=== PATIENT | female | born 1940 | race Caucasian/White ===

== ENCOUNTER 2024-06-20 10:17 | Inpatient (IN) | payer MEDICARE ==
--- NOTE | 2024-06-20 10:44 | ED ---
General Adult HPI - General Chief complaint: Chest Pain Stated complaint: chest pain Time Seen by Provider: 06/20/24 10:21 Source: patient, RN notes reviewed, old records reviewed Mode of arrival: EMS Limitations: no limitations - History of Present Illness Initial comments: 84-year-old female with palpitations, racing heart sensation. Symptoms began t his morning. Patient states she has a remote history of atrial fibrillation which was after bariatric surgery many years ago. She states that this was episodic and she has not required further treatment. She reports associated chest discomfort. No central chest pain. Patient was given aspirin and nitroglycerin by paramedics. No dyspnea. She reports a chronic cough. No vomiting. - Related Data Home Medications Medication Instructions Recorded Confirmed Levothyroxine Sodium 175 mcg PO DAILY 01/23/15 06/20/24 amLODIPine [Norvasc] 2.5 mg PO BID@0800,1200 06/20/24 06/20/24 lisinopriL [Lisinopril] 40 mg PO DAILY@1800 06/20/24 06/20/24 Allergies Allergy/AdvReac Type Severity Reaction Status Date / Time cortisone Allergy Unknown Verified 06/20/24 12:05 losartan potassium Allergy Rash/Hives Verified 06/20/24 12:05 [From Cozaar] Penicillins Allergy Rash/Hives Verified 06/20/24 12:05 - cillins Review of Systems ROS Statement: Those systems with pertinent positive or pertinent negative responses have been documented in the HPI. ROS Other: All systems not noted in ROS Statement are negative. Past Medical History Past Medical History: Atrial Fibrillation, Hypertension, Osteoarthritis (OA), Thyroid Disorder History of Any Multi-Drug Resistant Organisms: None Reported Additional Past Surgical History / Comment(s): RYGB 08/2012. gastric bypass Past Anesthesia/Blood Transfusion Reactions: No Reported Reaction Past Psychological History: No Psychological Hx Reported Smoking Status: Never smoker Past Alcohol Use History: None Reported Past Drug Use History: None Reported General Exam Limitations: no limitations General appearance: alert, in no apparent distress Head exam: Present: atraumatic, normocephalic Eye exam: Present: normal appearance, PERRL ENT exam: Present: normal exam Neck exam: Present: normal inspection. Absent: tenderness, meningismus Respiratory exam: Present: normal lung sounds bilaterally. Absent: respiratory distress, wheezes Cardiovascular Exam: Present: tachycardia, irregular rhythm GI/Abdominal exam: Present: soft. Absent: distended, tenderness, guarding Extremities exam: Present: normal inspection, normal capillary refill. Absent: pedal edema, calf tenderness Neurological exam: Present: alert, oriented X3, CN II-XII intact. Absent: motor sensory deficit Psychiatric exam: Present: normal affect, normal mood Skin exam: Present: warm, dry, intact Course Vital Signs 06/20/24 06/20/24 06/20/24 10:26 10:32 11:13 Temperature 98.4 F Pulse Rate 142 H 70 Pulse Rate [ 170 H [employer] ] Respiratory 14 14 Rate Blood Pressure 130/108 143/90 O2 Sat by Pulse 100 98 Oximetry Medical Decision Making - Medical Decision Making Was pt. sent in by a medical professional or institution (JESSICA Valadez, [employer] MANAGER, urgent care, hospital, or residential...) When possible be specific @ -No Did you speak to anyone other than the patient for history (EMS, parent, family, police, friend...)? What history was obtained from this source @ -No Did you review nursing and triage notes (agree or disagree)? Why? @ -I reviewed and agree with nursing and triage notes Were old charts reviewed (outside hosp., previous admission, EMS record, old EKG, old radiological studies, urgent care reports/EKG's, residential records)? Report findings @ -No old charts were reviewed Differential Palpitations Ventricular arrhythmias, atrial arrhythmias, myocardial infarction, anemia, thyrotoxicosis, electrolyte imbalance, hypokalemia, pulmonary embolism, pulmonary disease, drugs, alcohol, anxiety, stress.... This is not meant to be an all-inclusive list. EKG interpreted by me (3pts min.). @ -Atrial fibrillation with RVR rate of 154 QRS duration 99, QTc [address] segment elevation. Repeat EKG at 1119 sinus tachycardia, left axis, rate of 105, CT interval 210, QRS duration 111, QTc [address] segment elevation. X-rays interpreted by me (1pt min.). @Chest x-ray negative for acute cardiopulmonary disease CT interpreted by me (1pt min.). @ -None done U/S interpreted by me (1pt. min.). @ -None done What testing was considered but not performed or refused? (CT, X-rays, U/S, labs)? Why? @ -None What meds were considered but not given or refused? Why? @ -None Did you discuss the management of the patient with other professionals (professionals i.e. , PA, [employer]INO CAGE MANAGER, lab, RT, psych nurse, social human services assistants, legal technician, teacher, records officer, behavioral health case manager)? Give summary @[employer] physician group Was smoking cessation discussed for >3mins.? @ -No Was critical care preformed (if so, how long)? @ -Yes, 35 minutes Were there social determinants of health that impacted care today? How? (Homelessness, low income, unemployed, alcoholism, drug addiction, transportation, low edu. Level, literacy, decrease access to med. care, shelter, rehab)? @ -No Was there de-escalation of care discussed even if they declined (Discuss DNR or withdrawal of care, Hospice)? DNR status @ -No What co-morbidities impacted this encounter? (DM, HTN, Smoking, COPD, CAD, Cancer, CVA, ARF, Chemo, Hep., AIDS, mental health diagnosis, sleep apnea, morbid obesity)? @ -None Was patient admitted / discharged? Hospital course, mention meds given and route, prescriptions, significant lab abnormalities, going to OR and other pertinent info. @ -[84-year-old female presenting with rapid A-fib and chest discomfort. Initial EKG is atrial fibrillation with a rate of 150. Patient does spontaneously convert into sinus rhythm. She will be placed in observation for telemetry, serial cardiac enzymes, cardiology consultation. Undiagnosed new problem with uncertain prognosis? @ -No Drug Therapy requiring intensive monitoring for toxicity (Heparin, Nitro, Insulin, Cardizem)? @ -No Were any procedures done? @ -No Diagnosis/symptom? @ -[Atrial fibrillation with RVR, chest discomfort Acute, or Chronic, or Acute on Chronic? @ -Acute Uncomplicated (without systemic symptoms) or Complicated (systemic symptoms)? @ -Default Side effects of treatment? @ -No Exacerbation, Progression, or Severe Exacerbation? @ -No Poses a threat to life or bodily function? How? (Chest pain, USA, IA, pneumonia, PE, COPD, DKA, ARF, appy, cholecystitis, CVA, Diverticulitis, Homicidal, Suicidal, threat to staff... and all critical care pts) @ -Yes, arrhythmia, ACS - Lab Data Result diagrams: 06/20/24 10:39 06/20/24 11:17 Lab Results 06/20/24 06/20/24 06/20/24 Range/Units 10:39 10:39 11:17 WBC 5.8 (3.8-10.6) k/uL RBC 4.84 (3.80-5.40) m/uL Hgb 13.8 (11.4-16.0) gm/dL Hct 43.3 (34.0-46.0) % MCV 89.4 (80.0-100.0) fL MCH 28.6 (25.0-35.0) pg MCHC 32.0 (31.0-37.0) g/dL RDW 13.8 (11.5-15.5) % Plt Count 151 (150-450) k/uL MPV 11.4 Neutrophils % 58 % Lymphocytes % 27 % Monocytes % 7 % Eosinophils % 7 % Basophils % 0 % Neutrophils # 3.4 (1.3-7.7) k/uL Lymphocytes # 1.6 (1.0-4.8) k/uL Monocytes # 0.4 (0-1.0) k/uL Eosinophils # 0.4 (0-0.7) k/uL Basophils # 0.0 (0-0.2) k/uL Manual Slide Review Performed Large Platelets Present PT 10.9 (10.0-12.5) sec INR 1.0 (<1.2) APTT 24.0 (22.0-30.0) sec Sodium (137-145) mmol/L Potassium (3.5-5.1) mmol/L Chloride (98-107) mmol/L Carbon Dioxide (22-30) mmol/L Anion Gap mmol/L BUN (7-17) mg/dL Creatinine (0.52-1.04) mg/dL Est GFR (CKD-EPI)AfAm (>60 ml/min/1.73 sqM) Est GFR (CKD-EPI)NonAf (>60 ml/min/1.73 sqM) Glucose (74-99) mg/dL Calcium (8.4-10.2) mg/dL Magnesium (1.6-2.3) mg/dL Total Bilirubin (0.2-1.3) mg/dL AST (14-36) U/L ALT (4-34) U/L Alkaline Phosphatase (38-126) U/L Troponin I 0.012 (0.000-0.034) ng/mL Total Protein (6.3-8.2) g/dL Albumin (3.5-5.0) g/dL TSH (0.465-4.680) mIU/L 06/20/24 Range/Units 11:17 WBC (3.8-10.6) k/uL RBC (3.80-5.40) m/uL Hgb (11.4-16.0) gm/dL Hct (34.0-46.0) % MCV (80.0-100.0) fL MCH (25.0-35.0) pg MCHC (31.0-37.0) g/dL RDW (11.5-15.5) % Plt Count (150-450) k/uL MPV Neutrophils % % Lymphocytes % % Monocytes % % Eosinophils % % Basophils % % Neutrophils # (1.3-7.7) k/uL Lymphocytes # (1.0-4.8) k/uL Monocytes # (0-1.0) k/uL Eosinophils # (0-0.7) k/uL Basophils # (0-0.2) k/uL Manual Slide Review Large Platelets PT (10.0-12.5) sec INR (<1.2) APTT (22.0-30.0) sec Sodium 141 (137-145) mmol/L Potassium 4.2 (3.5-5.1) mmol/L Chloride 110 H (98-107) mmol/L Carbon Dioxide 23 (22-30) mmol/L Anion Gap 8 mmol/L BUN 18 H (7-17) mg/dL Creatinine 0.90 (0.52-1.04) mg/dL Est GFR (CKD-EPI)AfAm 69 (>60 ml/min/1.73 sqM) Est GFR (CKD-EPI)NonAf 60 (>60 ml/min/1.73 sqM) Glucose 101 H (74-99) mg/dL Calcium 9.2 (8.4-10.2) mg/dL Magnesium 1.9 (1.6-2.3) mg/dL Total Bilirubin 2.5 H (0.2-1.3) mg/dL AST 25 (14-36) U/L ALT 16 (4-34) U/L Alkaline Phosphatase 74 (38-126) U/L Troponin I (0.000-0.034) ng/mL Total Protein 6.0 L (6.3-8.2) g/dL Albumin 4.0 (3.5-5.0) g/dL TSH 0.046 L (0.465-4.680) mIU/L Critical Care Time Critical Care Time: Yes Total Critical Care Time: 35 Disposition Clinical Impression: Chest pain, Atrial fibrillation with RVR Disposition: ADMITTED IP TO THIS HOSP Condition: Stable Is patient prescribed a controlled substance at d/c from ED?: No Referrals: Jose Laura DO [Primary Care Provider] - 1-2 days Time of Disposition: 12:54
[2024-06-20 11:05] LABS: Prothrombin Time 10.9 sec (10.0-12.5)
[2024-06-20 11:07] LABS: Basophils % (A) 0 %; Eosinophils # (A) 0.4 k/uL (0-0.7); Eosinophils % (A) 7 %; HCT 43.3 % (34.0-46.0); HGB 13.8 gm/dL (11.4-16.0); Lymphocytes # (A) 1.6 k/uL (1.0-4.8); Lymphocytes % (A) 27 %; MCH 28.6 pg (25.0-35.0); MCV 89.4 fL (80.0-100.0); Mean Platelet Volume 11.4; Monocytes # (A) 0.4 k/uL (0-1.0); Monocytes % (A) 7 %; Neutrophils # (A) 3.4 k/uL (1.3-7.7); Neutrophils % (A) 58 %; Platelet Count 151 k/uL (150-450); RBC 4.84 m/uL (3.80-5.40); RDW 13.8 % (11.5-15.5); WBC 5.8 k/uL (3.8-10.6)
--- NOTE | 2024-06-20 11:15 | XR ---
EXAMINATION TYPE: XR chest 2V DATE OF EXAM: 06/20/2024 11:04 AM COMPARISON: None CLINICAL INDICATION: Female, 84 years old with history of Chest Pain, , TECHNIQUE: AP and lateral views FINDINGS: Heart is borderline enlarged. Hazy lung densities relating to patient body habitus and AP technique. Surgical clips projecting at the left lower hemithorax probably related to prior lumpectomy. No conso lidation or pleural effusion. IMPRESSION: Borderline heart size. Otherwise, no acute process seen. [facility], , 06/20/2024 11:13 AM
[2024-06-20] MEDS: SODIUM CHLORIDE 0.9% 500 ML 500 ML IV ONE (11:17)
[2024-06-20] MEDS ORDERED: HEPARIN SODIUM 1,000 UN/ML (10ML VL) IV PRN (11:26)
[2024-06-20 11:32] LABS: Large Platelets Present
[2024-06-20 11:46] LABS: ALT 16 U/L (4-34); AST 25 U/L (14-36); African American GFR (CKD) 69 (>60 ml/min/1.73 sqM); Alkaline Phosphatase 74 U/L (38-126); Anion Gap 8 mmol/L; Blood Urea Nitrogen 18 mg/dL (7-17); Calcium 9.2 mg/dL (8.4-10.2); Carbon Dioxide 23 mmol/L (22-30); Chloride 110 mmol/L (98-107); Glucose 101 mg/dL (74-99); Magnesium 1.9 mg/dL (1.6-2.3); Non-African American GFR(CKD) 60 (>60 ml/min/1.73 sqM); Potassium 4.2 mmol/L (3.5-5.1); Sodium 141 mmol/L (137-145); Total Bilirubin 2.5 mg/dL (0.2-1.3)
[2024-06-20] MEDS: HEPARIN SODIUM 1,000 UN/ML (10ML VL) IV ONE (11:48)
[2024-06-20] MEDS: HEPARIN SOD,PORK IN 0.45% NACL 25,000 UNIT in 0.45% NACL 1 250ML.BAG IV SCH (11:48)
[2024-06-20] MEDS ORDERED: NALOXONE 0.4 MG/ML 1 ML VIAL IV PRN (12:51)
[2024-06-20] MEDS: DILTIAZEM DRIP BOLUS FROM BAG 1 MG SOLN IV ONE (12:58)
[2024-06-20] MEDS: DILTIAZEM 125 MG in SODIUM CHLORIDE 0.9% 100 ML IV SCH (12:59)
--- NOTE | 2024-06-20 14:07 | P.HPIM ---
History of Present Illness H&P Date: 06/20/24 Patient is an 84-year-old female with past medical history of bariatric surgery, remote history of A-fib that started after she lost 160 pounds, required cardioversion was on Eliquis for some time, hypertension, hypothyroidism, left breast cancer status post lumpectomy no chemo or radiation needed, PAD bilateral carotid endarterectomy, presented with palpitation with associated chest dis comfort, brain fog. EMS called, patient was given aspirin, nitroglycerin. Has been having symptoms for the past couple months with on and off palpitations, she believes it was stress-induced as she recently moved, her had open heart surgery, she denies LOS, shortness of breath, admits having chronic nonproductive cough, no fevers, chills, bowel habit changes, dysuria. On admission she was afebrile, with heart rate going up to 170s, stable BP in the 130s over 100s, satting well on room air. Pertinent positives and negatives as discussed in HPI, a complete review of systems was performed and all other systems are negative. EKG showed no P waves, heart rate 150s, QTc 370. without intervention, converted to sinus with no intervention, repeat EKG showed sinus tachycardia with heart ra te in 100s and QTc of 418, no ST elevation noted. Patient is being admitted for management of A-fib, cardiology consult, TTE Lab work was significant for unremarkable WBC, normal sodium and potassium, normal creatinine, TSH was low 0.0 46, T4 requested, troponin negative. Patient was continued on levothyroxine, might need dosage management pending T4 levels, continued on lisinopril, started on Lopressor 25 twice daily, holding amlodipine to monitor for blood pressure changes while on beta-blockers TSH low, T4 pending, will hold levothyroxine Patient seen and examined at bedside. Vital signs reviewed General: nontoxic, no distress, appears at stated age Derm: warm, dry Head: atraumatic, normocephalic, symmetric Eyes: EOMI, no lid lag, anicteric sclera, pupils equal round reactive to light ENT: Nose and ears atraumatic Neck: No thyromegaly, supple Mouth: no lip lesion, mucus membranes moist Cardiovascular: S1S2 reg, no murmur, no edema Lungs: clear to auscultation bilateral, no rhonchi, no rales, no wheeze, no accessory muscle use Abdominal: soft, nontender to palpation, no guarding, no appreciable organomegaly Ext: no gross muscle atrophy, muscle strength muscle strength 5 out of 5 in all 4 extremities, no contractures Neuro: CN II-XII grossly intact Psych: Alert, oriented, appropriate affect Assessment/Plan: Paroxysmal A-fib with RVR, converted to sinus Remote history of A-fib Hypertension Possible iatrogenic hyperthyroidism -Telemetry -TTE -Cardiology consulted, appreciate recommendations -Continue heparin drip, likely transition on eliquis -Continue lisinopril, start Lopressor 25 twice daily, monitor for hypotension -T4 pending, hold home levothyroxine 176 mcg daily, will readjust the dose depending on T4 levels PAD status post bilateral carotid enterectomy: Patient is not on antiplatelets or statins History of left breast surgery status postlumpectomy The patient is admitted with an anticipated [greater] than 2 midnight stay as [inpatient/observation] status for evaluation of chest pain, A-fib with RVR. CODE STATUS: DNR/DNI DVT prophylaxis: Heparin drip Anticipated discharge date: 06/[address]: Home A total of 40 minutes was spent on the care of this complex patient more than 50% of the time was spent in counseling and care coordination. Past Medical History Past Medical History: Atrial Fibrillation, Hypertension, Osteoarthritis (OA), Thyroid Disorder History of Any Multi-Drug Resistant Organisms: None Reported Additional Past Surgical History / Comment(s): RYGB 08/2012. gastric bypass Past Anesthesia/Blood Transfusion Reactions: No Reported Reaction Past Psychological History: No Psychological Hx Reported Smoking Status: Never smoker Past Alcohol Use History: None Reported Past Drug Use History: None Reported Medications and Allergies Home Medications Medication Instructions Recorded Confirmed Type Levothyroxine Sodium 175 mcg PO DAILY 01/23/15 06/20/24 History amLODIPine [Norvasc] 2.5 mg PO BID@0800,1200 06/20/24 06/20/24 History lisinopriL [Lisinopril] 40 mg PO DAILY@1800 06/20/24 06/20/24 History Allergies Allergy/AdvReac Type Severity Reaction Status Date / Time cortisone Allergy Unknown Verified 06/20/24 12:05 losartan potassium Allergy Rash/Hives Verified 06/20/24 12:05 [From Cozaar] Penicillins Allergy Rash/Hives Verified 06/20/24 12:05 - cillins Physical Exam Vitals: Vital Signs Temp Pulse Pulse Resp BP Pulse Ox 06/20/24 11:13 70 14 143/90 98 06/20/24 10:32 170 H 06/20/24 10:26 98.4 F 142 H 14 130/108 100 Intake and Output 06/19/24 06/20/24 06/20/24 22:59 06:59 14:59 Other: Weight 85.275 kg Results CBC & Chem 7: 06/20/24 10:39 06/20/24 11:17 Labs: Abnormal Lab Results - Last 24 Hours (Table) 06/20/24 Range/Units 11:17 Chloride 110 H (98-107) mmol/L BUN 18 H (7-17) mg/dL Glucose 101 H (74-99) mg/dL Total Bilirubin 2.5 H (0.2-1.3) mg/dL Total Protein 6.0 L (6.3-8.2) g/dL TSH 0.046 L (0.465-4.680) mIU/L
--- NOTE | 2024-06-20 14:39 | P.CRDCN ---
History of Present Illness History of present illness: HISTORY OF PRESENT ILLNESS: This is a 84-year-old female with a past medical history significant for obesity status post bariatric surgery, thyroid disorder, hypertension, and paroxysmal atrial fibrillation. Patient used to follow with a diesel instructor in [place], Dr. Soriano. However she states that she has moved to this area recently and has not established with a diesel instructor. We have been asked to see the patient in consultation for A-fib with RVR. Patient examined at the bedside in the emergency room. Patient states that she had bariatric surgery in 2012 (?). She states after her surgery she has had intermittent issues with atrial fibrillation. She denies ever needing a cardioversion or ablation. She states that she was previously on metoprolol but was taken off of this secondary to bradycardia. She also states that she was previously anticoagulated with Eliqui s but saw one of Dr. Soriano's partners and was taken off of this as he told her it was no longer needed. Patient states on 's [place]asc[place] she was placed on amlodipine by her PCP as her blood pressures were running on the higher side. She states over the past month she has been having symptoms about twice a week of palpitations, mild chest pressure, her head feels foggy and she feels like she is going to pass out. She denies having any shortness of breath. Patient was found to be in A-fib with RVR when she came to the emergency room. Patient was started on IV heparin and IV Cardizem. She subsequently converted to sinus mechanism. Patient does report having a previous stress test but is unsure of when or how long ago this was. She denies ever having a cardiac catheterization. She denies any known history of CAD, cardiomyopathy, or CHF. DIAGNOSTICS: - EKG reveals atrial fibrillation with RVR. Repeat EKG reveals sinus mechanism. - Chest xray borderline heart size. Otherwise no acute process seen. - Laboratory data: WBC 5.8. Hemoglobin 13.8. Platelet count 151. Sodium 141. Potassium 4.2. BUN 18. Creatinine 0.90. Troponin negative x 1. TSH 0.046. Free T42.78. - Current home cardiac medications include lisinopril 40 mg daily and amlodipine 2.5 mg twice a day REVIEW OF SYSTEMS: At the time of my exam: CONSTITUTIONAL: Denies fever or chills. HEENT: Denies blurred vision, vision changes, or eye pain. Denies hemoptysis CARDIOVASCULAR: Denies chest pain. Denies orthopnea. Denies PND. Denies palpitations RESPIRATORY: Denies shortness of breath. GASTROINTESTINAL: Denies abdominal pain. Denies nausea or vomiting. HEMATOLOGIC: Denies bleeding disorders. GENITOURINARY: Denies any blood in urine. SKIN: Denies pruitis. Denies rash. PHYSICAL EXAM: VITAL SIGNS: Reviewed. GENERAL: Well-developed in no acute distress. HEENT: Head is normocephalic. Pupils are equal, round. Sclerae anicteric. Mucous membranes of the mouth are moist. Neck supple. No JVD or thyromegaly LUNGS: Respirations even and unlabored. Lungs essentially clear to auscultation bilaterally. HEART: Regular rate and rhythm. S1 and S2 heard. ABDOMEN: Soft. Nondistended. Nontender. EXTREMITIES: Normal range of motion. No clubbing or cyanosis. Peripheral pulses intact. No lower extremity edema NEUROLOGIC: Awake and alert. Oriented x 3. ASSESSMENT: Paroxysmal atrial fibrillation with RVR Hypertension History of thyroid disorder with abnormal TSH and free T4 History of left breast cancer with mastectomy History of carotid stenosis with previous bilateral intervention PLAN: Obtain 2D echo to assess cardiac structure and function Discontinue IV Cardizem and IV heparin Discontinue metoprolol Begin Eliquis 5 mg twice a day Begin Cardizem CD 120 mg daily Begin flecainide 50 mg twice a day Obtain orthostatic blood pressures Continue telemetry monitoring Further recommendations pending patient course Nurse practitioner note has been reviewed by physician. Signing provider agrees with the documented findings, assessment, and plan of care documented by HIRE CAR [employer] as a scribe. Past Medical History Past Medical History: Atrial Fibrillation, Hypertension, Osteoarthritis (OA), Thyroid Disorder History of Any Multi-Drug Resistant Organisms: None Reported Additional Past Surgical History / Comment(s): RYGB 08/2012. gastric bypass Past Anesthesia/Blood Transfusion Reactions: No Reported Reaction Past Psychological History: No Psychological Hx Reported Smoking Status: Never smoker Past Alcohol Use History: None Reported Past Drug Use History: None Reported Medications and Allergies Home Medications Medication Instructions Recorded Confirmed Type Levothyroxine Sodium 175 mcg PO DAILY 01/23/15 06/20/24 History amLODIPine [Norvasc] 2.5 mg PO BID@0800,1200 06/20/24 06/20/24 History lisinopriL [Lisinopril] 40 mg PO DAILY@1800 06/20/24 06/20/24 History Allergies Allergy/AdvReac Type Severity Reaction Status Date / Time cortisone Allergy Unknown Verified 06/20/24 12:05 losartan potassium Allergy Rash/Hives Verified 06/20/24 12:05 [From [facility]] Penicillins Allergy Rash/Hives Verified 06/20/24 12:05 - cillins Physical Exam Vitals: Vital Signs Temp Pulse Pulse Resp BP Pulse Ox 06/20/24 11:13 70 14 143/90 98 06/20/24 10:32 170 H 06/20/24 10:26 98.4 F 142 H 14 130/108 100 Intake and Output 06/19/24 06/20/24 06/20/24 22:59 06:59 14:59 Other: Weight 85.275 kg Results 06/20/24 10:39 06/20/24 11:17 Cardiac Enzymes 06/20/24 06/20/24 Range/Units 11:17 11:17 AST 25 (14-36) U/L Troponin I 0.012 (0.000-0.034) ng/mL Coagulation 06/20/24 Range/Units 10:39 PT 10.9 (10.0-12.5) sec APTT 24.0 (22.0-30.0) sec CBC 06/20/24 Range/Units 10:39 WBC 5.8 (3.8-10.6) k/uL RBC 4.84 (3.80-5.40) m/uL Hgb 13.8 (11.4-16.0) gm/dL Hct 43.3 (34.0-46.0) % Plt Count 151 (150-450) k/uL Comprehensive Metabolic Panel 06/20/24 Range/Units 11:17 Sodium 141 (137-145) mmol/L Potassium 4.2 (3.5-5.1) mmol/L Chloride 110 H (98-107) mmol/L Carbon Dioxide 23 (22-30) mmol/L BUN 18 H (7-17) mg/dL Creatinine 0.90 (0.52-1.04) mg/dL Glucose 101 H (74-99) mg/dL Calcium 9.2 (8.4-10.2) mg/dL AST 25 (14-36) U/L ALT 16 (4-34) U/L Alkaline Phosphatase 74 (38-126) U/L Total Protein 6.0 L (6.3-8.2) g/dL Albumin 4.0 (3.5-5.0) g/dL Current Medications Generic Name Dose Route Start Last Admin Trade Name Freq PRN Reason Stop Dose Admin Heparin Sodium (Porcine) 0 unit 06/20/24 11:26 Heparin Sodium 1,000 Un/Ml (10ml Vl) IV PER PROTOCOL PRN Low PTT Protocol Diltiazem HCl 125 mg/ Sodium 125 mls @ 5 mls/hr 06/20/24 10:45 06/20/24 12:59 Chloride IV Not Given .Q24H JANICE 5 MG/HR Heparin Sodium/Sodium Chloride 250 mls @ 10 mls/hr 06/20/24 11:30 06/20/24 11:48 25,000 unit/ Sodium Chloride IV 11.727 units/kg/hr .Q24H JANICE 10 mls/hr Administration Protocol 11.727 UNITS/KG/HR Lisinopril 40 mg 06/20/24 18:00 Lisinopril 20 Mg Tab PO DAILY@1800 JANICE Metoprolol Tartrate 25 mg 06/20/24 21:00 Metoprolol Tartrate 25 Mg Tab PO BID JANICE Naloxone HCl 0.2 mg 06/20/24 12:51 Naloxone 0.4 Mg/Ml 1 Ml Vial IV Q2M PRN Opioid Reversal Intake and Output 06/19/24 06/20/24 06/20/24 22:59 06:59 14:59 Other: Weight 85.275 kg Patient Weight 06/21/24 06:59 Weight 85.275 kg 06/20/24 10:39 06/20/24 11:17
[2024-06-20] MEDS: DILTIAZEM CD 120 MG CAP.ER.24H PO SCH (14:52)
[2024-06-20] MEDS: FLECAINIDE 50 MG TAB PO SCH (14:52)
--- NOTE | 2024-06-20 17:24 | CA ---
Transthoracic Echo Report Name: Miesha Aroar Age: 84 Gender: F : 1940 Exam Date: 06/20/2024 15:31 Exam Location: [place] [facility] Ht (in): 66 Wt (lb): 188 Ordering Physician: Mariza Wolfe MD Attending/Referring Phys: Solar Sales Associate Helen Martinez RDCS Procedure CPT: Indications: afib Cardiac Hx: Technical Quality: Good Contrast 1: Total Dose (mL): Contrast 2: Total Dose (mL): MEASUREMENTS (Male / Female) Normal Values 2D ECHO LV Diastolic Diameter PLAX 4.6 cm 4.2 - 5.9 / 3.9 - 5.3 cm LV Systolic Diameter PLAX 2.9 cm IVS Diastolic Thickness 1.2 cm 0.6 - 1.0 / 0.6 - 0.9 cm LVPW Diastolic Thickness 1.5 cm 0.6 - 1.0 / 0.6 - 0.9 cm LV Relative Wall Thickness 0.6 LVOT Diameter 2.1 cm LV Diastolic Volume MOD BP 86.0 cm??? 67 - 155 / 56 - 104 cm??? LV Systolic Volume MOD BP 29.3 cm??? 22 - 58 / 19 - 49 cm??? LV Ejection Fraction MOD BP 65.9 % >= 55 % LV Cardiac Index MOD BP 1740.0 cm???/min???m??? LV Diastolic Volume MOD 4C 87.4 cm??? LV Systolic Volume MOD 4C 33.3 cm??? LV Ejection Fraction MOD 4C 61.9 % LV Cardiac Index MOD 4C 1660.3 cm???/min???m??? LV Diastolic Length 4C 7.2 cm LV Systolic Length 4C 5.7 cm LV Diastolic Volume MOD 2C 80.9 cm??? LV Systolic Volume MOD 2C 25.7 cm??? LV Ejection Fraction MOD 2C 68.3 % LV Cardiac Index MOD 2C 1696.2 cm???/min???m??? LV Diastolic Length 2C 6.9 cm LV Systolic Length 2C 5.8 cm LA Volume 85.9 cm??? 18 - 58 / 22 - 52 cm??? LA Volume Index 42.6 cm???/m??? 16 - 28 cm???/m??? DOPPLER AV Peak Velocity 156.1 cm/s AV Peak Gradient 9.7 mmHg AV Mean Velocity 104.9 cm/s AV Mean Gradient 4.9 mmHg AV Velocity Time Integral 28.3 cm LVOT Peak Velocity 102.2 cm/s LVOT Peak Gradient 4.2 mmHg LVOT Velocity Time Integral 19.9 cm LVOT Stroke Volume 68.2 cm??? LVOT Stroke Volume Index 35.0 ml/m??? LVOT Cardiac Index 2094.8 cm???/min???m??? AV Area Cont Eq vti 2.4 cm??? AV Area Cont Eq pk 2.2 cm??? MV Area PHT 3.6 cm??? Mitral E Point Velocity 43.6 cm/s Mitral A Point Velocity 82.4 cm/s Mitral E to A Ratio 0.5 MV Deceleration Time 209.7 ms PV Peak Velocity 90.0 cm/s PV Peak Gradient 3.2 mmHg FINDINGS Left Ventricle Left ventricular ejection fraction is estimated at 55-60 %. Mildly increased septal wall thickness. Moderately increased posterior wall thickness. Left ventricular cavity size normal. No obvious regional wall motion abnormalities. Grade 1 diastolic dysfunction. Right Ventricle Normal right ventricular size and function. Unable to estimate the right ventricular systolic pressure. Right Atrium Mild right atrial dilated Left Atrium Moderate LA dilated Mitral Valve Structurally normal mitral valve. No evidence for mitral valve prolapse. No mitral stenosis. Trace mitral regurgitation. Aortic Valve Trileaflet aortic valve. No aortic valve stenosis or regurgitation. Tricuspid Valve Structurally normal tricuspid valve. No tricuspid stenosis. Trace tricuspid regurgitation. Pulmonic Valve Structurally normal pulmonic valve. No pulmonic stenosis. No pulmonic regurgitation. Pericardium No pericardial effusion. Aorta Normal size aortic root and proximal ascending aorta. CONCLUSIONS LVEF 55% No obvious regional wall motion abnormality Mild concentric LVH Moderate left atrial dilatation No significant valvular dysfunction. Previewed by: Dr Gonzales Worthy (Electronically Signed) Final Date: 20 June 2024 17:23
[2024-06-20] MEDS: lisinopriL 20 MG TAB PO SCH (17:40)
[2024-06-20] MEDS: APIXABAN 5 MG TAB PO SCH (20:56)
[2024-06-20] MEDS ORDERED: METOPROLOL TARTRATE 25 MG TAB PO SCH (21:00)
[2024-06-21] MEDS ORDERED: LEVOTHYROXINE 88 MCG TAB PO SCH (06:30)
[2024-06-21 07:30] VITALS: RESP 16
--- NOTE | 2024-06-21 09:54 | P.PN ---
Subjective HISTORY OF PRESENT ILLNESS: This is a 84-year-old female with a past medical history significant for obesity status post bariatric surgery, thyroid disorder, hypertension, and paroxysmal atrial fibrillation. Patient used to follow with a early childhood teacher in [place], Dr. Soriano. However she states that she has moved to this area recently and has not established with a early childhood teacher. We have been asked to see the patient in consultation for A-fib with RVR. Patient examined at the bedside in the emergency room. Patient states that she had bariatric surgery in 2012 (?). She states after her surgery she has had intermittent issues with atrial fibrillation. She denies ever needing a cardioversion or ablation. She states that she was previously on metoprolol but was taken off of this secondary to bradycardia. She also states that she was previously anticoagulated with Eliquis but saw one of Dr. Soriano's partners and was taken off of this as he told her it was no longer needed. Patient states on 's [place] she was placed on amlodipine by her PCP as her blood pressures were running on the higher side. She states over the past month she has been having symptoms about twice a week of palpitations, mild chest pressure, her head feels foggy and she feels like she is going to pass out. She denies having any shortness of breath. Patient was found to be in A-fib with RVR when she came to the emergency room. Patient was started on IV heparin and IV Cardizem. She subsequently converted to sinus mechanism. Patient does report having a previous stress test but is unsure of when or how long ago this was. She denies ever having a cardiac catheterization. She denies any known history of CAD, cardiomyopathy, or CHF. DIAGNOSTICS: - EKG reveals atrial fibrillation with RVR. Repeat EKG reveals sinus mechanism. - Chest xray borderline heart size. Otherwise no acute process seen. - Laboratory data: WBC 5.8. Hemoglobin 13.8. Platelet count 151. Sodium 141. Potassium 4.2. BUN 18. Creatinine 0.90. Troponin negative x 1. TSH 0.046. Free T42.78. - Current home cardiac medications include lisinopril 40 mg daily and amlodipine 2.5 mg twice a day 06/21/2024 Patient examined this morning at the bedside. She remains in emergency room. Patient currently denies chest pain or pressure. She denies shortness of br eath. Telemetry reveals sinus mechanism. Orthostatic blood pressures obtained and were unremarkable. Echocardiogram completed revealing ejection fraction 55 to 60%, no obvious regional wall motion abnormalities, mild concentric LVH, moderate left atrial dilatation, no significant valvular dysfunction. PHYSICAL EXAM: VITAL SIGNS: Reviewed. GENERAL: Well-developed in no acute distress. HEENT: Head is normocephalic. Pupils are equal, round. Sclerae anicteric. Mucous membranes of the mouth are moist. Neck supple. No JVD or thyromegaly LUNGS: Respirations even and unlabored. Lungs essentially clear to auscultation bilaterally. HEART: Regular rate and rhythm. S1 and S2 heard. ABDOMEN: Soft. Nondistended. Nontender. EXTREMITIES: Normal range of motion. No clubbing or cyanosis. Peripheral pulses intact. No lower extremity edema NEUROLOGIC: Awake and alert. Oriented x 3. ASSESSMENT: Paroxysmal atrial fibrillation with RVR Hypertension History of thyroid disorder with abnormal TSH and free T4 History of left breast cancer with mastectomy History of carotid stenosis with previous bilateral intervention PLAN: Continue current cardiac medications Patient is stable for discharge home today from a cardiac standpoint She is to follow-up postdischarge with Dr. Baker Nurse practitioner note has been reviewed by physician. Signing provider agrees with the documented findings, assessment, and plan of care documented by PAPER CUTTER as a scribe. Objective - Vital Signs Vital signs: Vital Signs Temp 98.6 F 06/20/24 14:26 Pulse 59 L 06/21/24 08:27 Resp 16 06/21/24 07:28 BP 137/61 06/21/24 07:28 Pulse Ox 97 06/21/24 07:28 FiO2 Intake & Output 06/20/24 06/21/24 06/21/24 18:59 06:59 18:59 Weight 85.275 kg - Labs CBC & Chem 7: 06/20/24 10:39 06/20/24 11:17 Labs: Abnormal Lab Results - Last 24 Hours (Table) 06/20/24 06/20/24 Range/Units 11:17 11:17 Chloride 110 H (98-107) mmol/L BUN 18 H (7-17) mg/dL Glucose 101 H (74-99) mg/dL Total Bilirubin 2.5 H (0.2-1.3) mg/dL Total Protein 6.0 L (6.3-8.2) g/dL TSH 0.046 L (0.465-4.680) mIU/L Free T4 2.78 H (0.78-2.19) ng/dL
--- NOTE | 2024-06-21 13:39 | P.DS ---
Providers Date of admission: 06/20/24 15:35 Attending physician: Tushar Cobb Consults: 06/20/24 12:51 Consult Physician Routine Consulting Provider: Leora Lam Consult Reason/Comments: A-fib RVR Do you want consulting provider notified?: Yes Primary care physician: Jose Laura Assessment: Discharge Diagnosis: Paroxysmal A-fib with RVR Grade 1 diastolic dysfunction HTN Iatrogenic hyperthyroidism History of hypothyroidism History of left breast cancer status post mastectomy History of bilateral carotid stenosis with bilateral intervention Hospital Course: Patient is an 84-year-old female with past medical history of bariatric surgery, remote history of A-fib that started after she lost 160 pounds, required cardioversion was on Eliquis for some time, hypertension, hypothyroidism, left breast cancer status post lumpectomy no chemo or radiation needed, PAD bilateral carotid endarterectomy, presented with palpitation with associated chest discomfort, brain fog. EMS called, patient was given aspirin, nitroglycerin. Has been having symptoms for the past couple months with on and off palpitations, she believes it was stress-induced as she recently moved, her had open heart surgery, she denies LOS, shortness of breath, admits having chronic nonproductive cough, no fevers, chills, bowel habit changes, dysuria. On admission she was afebrile, with heart rate going up to 170s, stable BP in the 130s over 100s, satting well on room air. Pertinent positives and negatives as discussed in HPI, a complete review of systems was performed and all other systems are negative. EKG showed no P waves, heart rate 150s, QTc 370. without intervention, converted to sinus with no intervention, repeat EKG showed sinus tachycardia with heart rate in 100s and QTc of 418, no ST elevation noted. Patient is being admitted for management of A-fib, cardiology consult, TTE Lab work was significant for unremarkable WBC, normal sodium and potassium, normal creatinine, TSH was low 0.0 46, T4 elevated 2.78, troponin negative. Levothyroxine dose decreased from 175 to 150 mcg/day patient needs to recheck thyroid levels in 4 to 6 weeks. Patient was seen by cardiology, started on Eliquis 5 mg twice daily, Cardizem CD1 20 mg daily, flecainide 50 mg twice daily. TTE showed EF of 55 to 60%, mildly increased septal thickening and posterior wall thickening, no obvious regional wall motion abnormalities, grade 1 diastolic dysfunction. Patient has been discharged home in stable condition with controlled heart rate, will continue Cardizem, flecainide, Eliquis, follow-up with cardiology on discharge. Cleared by cardiology. Patient seen and examined at bedside, she feels back to baseline, no active complaints. Vital signs reviewed and stable. General: [nontoxic], [no distress], [appears at stated age] Derm: [warm], [dry], bruising present Head: [atraumatic], [normocephalic], [symmetric] Eyes: [EOMI], [no lid lag], [anicteric sclera] Mouth: [no lip lesion], [mucus membranes moist] Cardiovascular: [S1S2 reg], [no murmur] Lungs: [CTA bilateral], [no rhonchi, no rales] , [no accessory muscle use] Abdominal: [soft], [ nontender to palpation], [no guarding], [no appreciable org anomegaly] Ext: [no gross muscle atrophy], [no edema], [no contractures] Neuro: [ CN II-XI grossly intact], [no focal neuro deficits] Psych: [Alert], [oriented], [appropriate affect] A total of [40 minutes of time were spent preparing this complex discharge summary. Patient was discharged on 06/21/2024. Patient Condition at Discharge: Stable Plan - Discharge Summary New Discharge Prescriptions: New Diltiazem Cd [Cardizem CD] 120 mg PO DAILY #90 cap Apixaban [Eliquis] 5 mg PO BID #90 tab Flecainide [Tambocor] 50 mg PO Q12HR #90 tab Levothyroxine Sodium [Synthroid] 150 mcg PO DAILY@0630 #90 tab Continue lisinopriL 40 mg PO DAILY@1800 Discontinued Levothyroxine Sodium 175 mcg PO DAILY amLODIPine [Norvasc] 2.5 mg PO BID@0800,1200 Discharge Medication List lisinopriL 40 mg PO DAILY@1800 06/20/24 [History] Apixaban [Eliquis] 5 mg PO BID #90 tab 06/21/24 [Rx] Diltiazem Cd [Cardizem CD] 120 mg PO DAILY #90 cap 06/21/24 [Rx] Flecainide [Tambocor] 50 mg PO Q12HR #90 tab 06/21/24 [Rx] Levothyroxine Sodium [Synthroid] 150 mcg PO DAILY@0630 #90 tab 06/21/24 [Rx] Follow up Appointment(s)/Referral(s): Meño Baker DO [STAFF PHYSICIAN] - 1 Week Jose Laura DO [Primary Care Provider] - 1-2 days Patient Instructions/Handouts: Apixaban (By mouth) Activity/Diet/Wound Care/Special Instructions: Please, follow up with your distribution a class lineman and PCP. Please, make sure your PCP rechecked your thyroid levels in 4-6 weeks. You now will be taking lower dose of your thyroid medication Discharge Disposition: HOME SELF-CARE
[2024-06-21 13:52] VITALS: BP 121/66; PULSE 69; TEMP 97.9
[2024-06-22] MEDS ORDERED: LEVOTHYROXINE 75 MCG TAB PO SCH (06:30)
== END 2024-06-21 13:50 | disposition home or self-care (01) | DRG 310 ==
LOC: EC 10:17 → 3SCARD 12:52 → OBSVTOIN 15:35 → 3SCARD 15:49
PROVIDERS: ADMIT Student in an Organized Health Care Education/Training Program; ATTEND Student in an Organized Health Care Education/Training Program
DX: I48.0 Paroxysmal atrial fibrillation (principal); E03.9 Hypothyroidism, unspecified; E05.80 Other thyrotoxicosis without thyrotoxic crisis or storm; E66.9 Obesity, unspecified; I10 Essential (primary) hypertension; Z66 Do not resuscitate; M19.90 Unspecified osteoarthritis, unspecified site; Z79.01 Long term (current) use of anticoagulants; Z79.890 Hormone replacement therapy; Z98.84 Bariatric surgery status; Z90.12 Acquired absence of left breast and nipple; Z85.3 Personal history of malignant neoplasm of breast; Z79.899 Other long term (current) drug therapy; Z86.79 Personal history of other diseases of the circulatory system; Z68.30 Body mass index [BMI] 30.0-30.9, adult; Z88.6 Allergy status to analgesic agent; Z88.0 Allergy status to penicillin
CPT/HCPCS: 36415; 71046; 80053; 83735; 84439; 84443; 84484; 85025; 85610; 85730; 93005; 93306; 96361; 96365; 96366; 99291

== ENCOUNTER 2024-12-04 09:00 | Emergency (ER) | payer MEDICARE ==
--- NOTE | 2024-12-04 10:15 | ED ---
General Adult HPI - General Chief complaint: Arrhythmia/Palpitations Stated complaint: Elevated Heart Rate Time Seen by Provider: 12/04/24 09:07 Source: patient, EMS, RN notes reviewed, old records reviewed Mode of arrival: EMS Limitations: no limitations - History of Present Illness Initial comments: 84-year-old female history of atrial fibrillation presents for evaluation of racing heart sensation and palpitation. No associated chest pain. No dyspnea. No cough or fever. No abdominal pain nausea or vomiting. Patient has history of atrial fibrillation she is on Eliquis. No recent medication changes. Patient symptoms resolved at the time my evaluation. - Related Data Home Medications Medication Instructions Recorded Confirmed lisinopriL 40 mg PO DAILY@1800 06/20/24 06/20/24 Previous Rx's Medication Instructions Recorded Apixaban [Eliquis] 5 mg PO BID #90 tab 06/21/24 Diltiazem Cd [Cardizem CD] 120 mg PO DAILY #90 cap 06/21/24 Flecainide [Tambocor] 50 mg PO Q12HR #90 tab 06/21/24 Levothyroxine Sodium [Synthroid] 150 mcg PO DAILY@0630 #90 tab 06/21/24 Allergies Allergy/AdvReac Type Severity Reaction Status Date / Time cortisone Allergy Unknown Verified 12/04/24 09:10 losartan potassium Allergy Rash/Hives Verified 12/04/24 09:10 [From Cozaar] Penicillins Allergy Rash/Hives Verified 12/04/24 09:10 - cillins Review of Systems ROS Statement: Those systems with pertinent positive or pertinent negative responses have been documented in the HPI. ROS Other: All systems not noted in ROS Statement are negative. Past Medical History Past Medical History: Atrial Fibrillation, Hypertension, Osteoarthritis (OA), Thyroid Disorder History of Any Multi-Drug Resistant Organisms: None Reported Additional Past Surgical History / Comment(s): RYGB 08/2012. gastric bypass Past Anesthesia/Blood Transfusion Reactions: No Reported Reaction Past Psychological History: No Psychological Hx Reported Smoking Status: Never smoker Past Alcohol Use History: None Reported Past Drug Use History: None Reported General Exam Limitations: no limitations General appearance: alert, in no apparent distress Head exam: Present: atraumatic, normocephalic Eye exam: Present: normal appearance, PERRL ENT exam: Present: normal exam Neck exam: Present: normal inspection. Absent: tenderness, meningismus Respiratory exam: Present: normal lung sounds bilaterally. Absent: respiratory distress, wheezes Cardiovascular Exam: Present: normal rhythm, bradycardia GI/Abdominal exam: Present: soft. Absent: distended, tenderness, guarding Extremities exam: Present: normal inspection, normal capillary refill. Absent: pedal edema, calf tenderness Neurological exam: Present: alert, oriented X3 Psychiatric exam: Present: normal affect, normal mood Course Vital Signs 12/04/24 12/04/24 12/04/24 09:04 10:44 10:52 Temperature 98.4 F 97.5 F L Pulse Rate 52 L 56 L 57 L Respiratory 18 18 16 Rate Blood Pressure 159/92 156/79 181/77 O2 Sat by Pulse 99 96 97 Oximetry 12/04/24 11:56 Temperature Pulse Rate 58 L Respiratory 18 Rate Blood Pressure 171/89 O2 Sat by Pulse 96 Oximetry - Reevaluation(s) Reevaluation #1: 12/04/24 12:00 Patient is in sinus rhythm on reevaluation Medical Decision Making - Medical Decision Making Was pt. sent in by a medical professional or institution (, PA, BOOKKEEPER RECEPTIONIST, urgent care, hospital, or group home...) When possible be specific @ -No Did you speak to anyone other than the patient for history (EMS, parent, family, police, friend...)? What history was obtained from this source @ -No Did you review nursing and triage notes (agree or disagree)? Why? @ -I reviewed and agree with nursing and triage notes Were old charts reviewed (outside hosp., previous admission, EMS record, old EKG, old radiological studies, urgent care reports/EKG's, group home records)? Report findings @ -No old charts were reviewed Differential Palpitations Ventricular arrhythmias, atrial arrhythmias, myocardial infarction, anemia, thyrotoxicosis, electrolyte imbalance, hypokalemia, pulmonary embolism, pulmonary disease, drugs, alcohol, anxiety, stress.... This is not meant to be an all-inclusive list. EKG interpreted by me (3pts min.). @ -Atrial fibrillation with slow ventricular response versus sinus bradycardia significant baseline artifact limiting atrial assessment. Ventricular rate of 45, QRS 116, QTc [address] segment elevation. X-rays interpreted by me (1pt min.). @ -Chest x-ray clear without acute cardiopulmonary findings CT interpreted by me (1pt min.). @ -None done U/S interpreted by me (1pt. min.). @ -None done What testing was considered but not performed or refused? (CT, X-rays, U/S, labs)? Why? @ -None What meds were considered but not given or refused? Why? @ -None Did you discuss the management of the patient with other professionals (professionals i.e. Dr., PA, BOOKKEEPER RECEPTIONIST, lab, RT, psych nurse, forensic social worker, assistant signal maintainer, teacher, air force senior officer, case finisher)? Give summary @ -No Was smoking cessation discussed for >3mins.? @ -No Was critical care preformed (if so, how long)? @ -No Were there social determinants of health that impacted care today? How? (Homelessness, low income, unemployed, alcoholism, drug addiction, transportation, low edu. Level, literacy, decrease access to med. care, fci, rehab)? @ -No Was there de-escalation of care discussed even if they declined (Discuss DNR or withdrawal of care, Hospice)? DNR status @ -No What co-morbidities impacted this encounter? (DM, HTN, Smoking, COPD, CAD, Cancer, CVA, ARF, Chemo, Hep., AIDS, mental health diagnosis, sleep apnea, morbid obesity)? @ -[History of atrial fibrillation. Was patient admitted / discharged? Hospital course, mention meds given and route, prescriptions, significant lab abnormalities, going to OR and other pertinent info. @ -84-year-old female presenting with palpitation, racing heart sensation. P atient is in sinus rhythm at the time my evaluation, bradycardic, stable blood pressure. Normal CBC, normal CMP, negative troponin, chest x-ray clear. Patient remains in a sinus bradycardia without symptoms while in the emergency department. She will monitor her heart rate and blood pressure at home and follow-up with her finishing supervisor. Undiagnosed new problem with uncertain prognosis? @ -No Drug Therapy requiring intensive monitoring for toxicity (Heparin, Nitro, Insulin, Cardizem)? @ -No Were any procedures done? @ -No Diagnosis/symptom? @ -Palpitations, history of atrial fibrillation Acute, or Chronic, or Acute on Chronic? @ -Acute Uncomplicated (without systemic symptoms) or Complicated (systemic symptoms)? @ -Default Side effects of treatment? @ -No Exacerbation, Progression, or Severe Exacerbation? @ -No Poses a threat to life or bodily function? How? (Chest pain, [place], [place], pneumonia, PE, COPD, DKA, ARF, appy, cholecystitis, CVA, Diverticulitis, Homicidal, Suicidal, threat to staff... and all critical care pts) @ -No - Lab Data Result diagrams: 12/04/24 10:12 12/04/24 10:12 Lab Results 12/04/24 12/04/24 12/04/24 Range/Units 10:12 10:12 10:12 WBC 4.79 (4.50-10.00) 10*3/uL RBC 4.46 (4.10-5.20) 10*6/uL Hgb 13.2 (12.0-15.0) g/dL Hct 40.1 (37.2-46.3) % MCV 89.9 (80.0-97.0) fL MCH 29.6 (27.0-32.0) pg MCHC 32.9 (32.0-37.0) g/dL Plt Count 139 L (140-440) 10*3/uL MPV 13.2 H (9.5-12.2) fL Immature Gran % (Auto) 0.2 % Neutrophils % 64.7 % Lymphocytes % 18.2 % Monocytes % 8.4 % Eosinophils % 7.7 % Basophils % 0.8 % Immature Gran # 0.01 (0.00-0.04) 10*3/uL Neutrophils # 3.10 (1.80-7.70) 10*3/uL Lymphocytes # 0.87 L (0.90-5.00) 10*3/uL Monocytes # 0.40 (0.20-1.00) 10*3/uL Eosinophils # 0.37 H (0.04-0.35) 10*3/uL Basophils # 0.04 (0.00-0.10) 10*3/uL Immature Plt Fraction 9.3 H (1.1-6.1) % PT 11.8 (10.0-12.5) sec INR 1.1 (<1.2) APTT 26.4 (22.0-30.0) sec Sodium 139 (137-145) mmol/L Potassium 4.2 (3.5-5.1) mmol/L Chloride 110 H (98-107) mmol/L Carbon Dioxide 23 (22-30) mmol/L Anion Gap 6 mmol/L BUN 20 H (7-17) mg/dL Creatinine 0.93 (0.52-1.04) mg/dL Est GFR (CKD-EPI)AfAm 66 (>60 ml/min/1.73 sqM) Est GFR (CKD-EPI)NonAf 57 (>60 ml/min/1.73 sqM) Glucose 102 H (74-99) mg/dL Calcium 9.3 (8.4-10.2) mg/dL Magnesium 1.8 (1.6-2.3) mg/dL Total Bilirubin 1.5 H (0.2-1.3) mg/dL AST 26 (14-36) U/L ALT 16 (4-34) U/L Alkaline Phosphatase 74 (38-126) U/L Troponin I (0.000-0.034) ng/mL Total Protein 5.9 L (6.3-8.2) g/dL Albumin 3.9 (3.5-5.0) g/dL / Range/Units 10:12 WBC (4.50-10.00) 10*3/uL RBC (4.10-5.20) 10*6/uL Hgb (12.0-15.0) g/dL Hct (37.2-46.3) % MCV (80.0-97.0) fL MCH (27.0-32.0) pg MCHC (32.0-37.0) g/dL Plt Count (140-440) 10*3/uL MPV (9.5-12.2) fL Immature Gran % (Auto) % Neutrophils % % Lymphocytes % % Monocytes % % Eosinophils % % Basophils % % Immature Gran # (0.00-0.04) 10*3/uL Neutrophils # (1.80-7.70) 10*3/uL Lymphocytes # (0.90-5.00) 10*3/uL Monocytes # (0.20-1.00) 10*3/uL Eosinophils # (0.04-0.35) 10*3/uL Basophils # (0.00-0.10) 10*3/uL Immature Plt Fraction (1.1-6.1) % PT (10.0-12.5) sec INR (<1.2) APTT (22.0-30.0) sec Sodium (137-145) mmol/L Potassium (3.5-5.1) mmol/L Chloride (98-107) mmol/L Carbon Dioxide (22-30) mmol/L Anion Gap mmol/L BUN (7-17) mg/dL Creatinine (0.52-1.04) mg/dL Est GFR (CKD-EPI)AfAm (>60 ml/min/1.73 sqM) Est GFR (CKD-EPI)NonAf (>60 ml/min/1.73 sqM) Glucose (74-99) mg/dL Calcium (8.4-10.2) mg/dL Magnesium (1.6-2.3) mg/dL Total Bilirubin (0.2-1.3) mg/dL AST (14-36) U/L ALT (4-34) U/L Alkaline Phosphatase (38-126) U/L Troponin I <0.012 (0.000-0.034) ng/mL Total Protein (6.3-8.2) g/dL Albumin (3.5-5.0) g/dL Disposition Clinical Impression: Palpitations Disposition: HOME SELF-CARE Condition: Fair Instructions (If sedation given, give patient instructions): Heart Palpitations (ED) Is patient prescribed a controlled substance at d/c from ED?: No Referrals: Jose Laura DO [Primary Care Provider] - 1-2 days Time of Disposition: 12:01
[2024-12-04 10:30] LABS: Basophils # (A) 0.04 10*3/uL (0.00-0.10); Basophils % (A) 0.8 %; Eosinophils # (A) 0.37 10*3/uL (0.04-0.35); Eosinophils % (A) 7.7 %; HCT 40.1 % (37.2-46.3); HGB 13.2 g/dL (12.0-15.0); Immature Platelet Fraction 9.3 % (1.1-6.1); Lymphocytes # (A) 0.87 10*3/uL (0.90-5.00); Lymphocytes % (A) 18.2 %; MCH 29.6 pg (27.0-32.0); MCHC 32.9 g/dL (32.0-37.0); MCV 89.9 fL (80.0-97.0); Mean Platelet Volume 13.2 fL (9.5-12.2); Monocytes % (A) 8.4 %; Neutrophils % (A) 64.7 %; Platelet Count 139 10*3/uL (140-440); RBC 4.46 10*6/uL (4.10-5.20); RDW 14.1 % (11.5-14.5); WBC 4.79 10*3/uL (4.50-10.00)
[2024-12-04 10:39] LABS: INR 1.1 (<1.2); Partial Thromboplastin Time 26.4 sec (22.0-30.0); Prothrombin Time 11.8 sec (10.0-12.5)
[2024-12-04 10:44] LABS: ALT 16 U/L (4-34); AST 26 U/L (14-36); African American GFR (CKD) 66 (>60 ml/min/1.73 sqM); Albumin 3.9 g/dL (3.5-5.0); Alkaline Phosphatase 74 U/L (38-126); Anion Gap 6 mmol/L; Blood Urea Nitrogen 20 mg/dL (7-17); Calcium 9.3 mg/dL (8.4-10.2); Carbon Dioxide 23 mmol/L (22-30); Chloride 110 mmol/L (98-107); Glucose 102 mg/dL (74-99); Magnesium 1.8 mg/dL (1.6-2.3); Non-African American GFR(CKD) 57 (>60 ml/min/1.73 sqM); Potassium 4.2 mmol/L (3.5-5.1); Sodium 139 mmol/L (137-145); Total Bilirubin 1.5 mg/dL (0.2-1.3); Total Protein 5.9 g/dL (6.3-8.2)
--- NOTE | 2024-12-04 10:59 | XR ---
EXAMINATION TYPE: XR chest 2V DATE OF EXAM: 12/04/2024 10:48 AM COMPARISON: 07/02/2024 CLINICAL INDICATION: Female, 84 years old with history of dysrhythmia, shortness of breath, TECHNIQUE: PA and lateral views FINDINGS: Heart mildly enlarged. Mild hyperinflation. No consolidation or pleural effusion. Surgical clips proj ecting at the anterior lower left chest probably related to prior breast surgery. IMPRESSION: Cardiomegaly and COPD. No acute process seen. [facility], Workstation: [id number], 12/04/2024 10:57 AM
[2024-12-04 11:00] VITALS: TEMP 97.5
[2024-12-04 11:57] VITALS: BP 171/89; PULSE 58; RESP 18
== END 2024-12-04 12:29 | disposition home or self-care (01) ==
LOC: EC 09:00
DX: R00.2 Palpitations (principal); Z79.01 Long term (current) use of anticoagulants; Z88.0 Allergy status to penicillin; Z88.8 Allergy status to other drugs, medicaments and biological substances
CPT/HCPCS: 36415; 71046; 80053; 83735; 84484; 85025; 85610; 85730; 93005; 99285

== ENCOUNTER 2024-12-14 13:42 | Inpatient (IN) | payer MEDICARE ==
[2024-12-14 14:16] LABS: Basophils # (A) 0.05 10*3/uL (0.00-0.10); Basophils % (A) 0.8 %; Eosinophils # (A) 0.20 10*3/uL (0.04-0.35); Eosinophils % (A) 3.1 %; HCT 42.3 % (37.2-46.3); HGB 13.9 g/dL (12.0-15.0); Lymphocytes # (A) 1.17 10*3/uL (0.90-5.00); Lymphocytes % (A) 18.0 %; MCH 29.3 pg (27.0-32.0); MCHC 32.9 g/dL (32.0-37.0); MCV 89.2 fL (80.0-97.0); Monocytes # (A) 0.63 10*3/uL (0.20-1.00); Monocytes % (A) 9.7 %; Neutrophils # (A) 4.42 10*3/uL (1.80-7.70); Neutrophils % (A) 68.1 %; RBC 4.74 10*6/uL (4.10-5.20); RDW 14.5 % (11.5-14.5); WBC 6.49 10*3/uL (4.50-10.00)
--- NOTE | 2024-12-14 14:18 | ED ---
Abdominal Pain HPI - General Source: patient, RN notes reviewed Mode of arrival: EMS Limitations: no limitations - History of Present Illness MD Complaint: abdominal pain <Sera Camarillo - Last Filed: 12/14/24 17:25> <Yeimy Beck - Last Filed: 12/14/24 18:58> - General Chief Complaint: Abdominal Pain Stated Complaint: Abd pain, general weakness Time Seen by Provider: 12/14/24 13:44 - History of Present Illness Initial Comments: This is an 84-year-old female who presents to the emergency department for abdominal pain. Patient reports lower abdominal pain starting yesterday. States that it got worse this morning. Pain is intermittent. It is not worse on one side or the other. Denies any nausea or vomiting. She has not had a bowel movement in 3 days. She did try taking Dulcolax yesterday, but states that she only went a small amount. Denies any nausea/vomiting or fever/chills. Denies any chest pain or shortness of breath. (Sera Camarillo) - Related Data Home Medications Medication Instructions Recorded Confirmed lisinopriL 40 mg PO DAILY@1800 06/20/24 06/20/24 Previous Rx's Medication Instructions Recorded Apixaban [Eliquis] 5 mg PO BID #90 tab 06/21/24 Diltiazem Cd [Cardizem CD] 120 mg PO DAILY #90 cap 06/21/24 Flecainide [Tambocor] 50 mg PO Q12HR #90 tab 06/21/24 Levothyroxine Sodium [Synthroid] 150 mcg PO DAILY@0630 #90 tab 06/21/24 Allergies Allergy/AdvReac Type Severity Reaction Status Date / Time cortisone Allergy Unknown Verified 12/04/24 09:10 losartan potassium Allergy Rash/Hives Verified 12/04/24 09:10 [From Cozaar] Penicillins Allergy Rash/Hives Verified 12/04/24 09:10 - cillins Review of Systems ROS Other: All systems not noted in ROS Statement are negative. <Sera Camarillo - Last Filed: 12/14/24 17:25> ROS Other: All systems not noted in ROS Statement are negative. <Yeimy Beck - Last Filed: 12/14/24 18:58> ROS Statement: Those systems with pertinent positive or pertinent negative responses have been documented in the HPI. Past Medical History Past Medical History: Cancer, Hypertension, Osteoarthritis (OA), Thyroid Disorder Additional Past Medical History / Comment(s): breast ca with left mastectomy History of Any Multi-Drug Resistant Organisms: None Reported Past Surgical History: Cholecystectomy, Hysterectomy Additional Past Surgical History / Comment(s): RYGB 08/2012. gastric bypass. mastectomy Past Anesthesia/Blood Transfusion Reactions: No Reported Reaction Past Psychological History: No Psychological Hx Reported Smoking Status: Never smoker Past Alcohol Use History: None Reported Past Drug Use History: None Reported <Sera Camarillo - Last Filed: 12/14/24 17:25> General Exam Limitations: no limitations General appearance: alert, in no apparent distress Head exam: Present: atraumatic, normocephalic, normal inspection Respiratory exam: Present: normal lung sounds bilaterally. Absent: respiratory distress, wheezes, rales, rhonchi, stridor Cardiovascular Exam: Present: regular rate, irregular rhythm GI/Abdominal exam: Present: soft, tenderness (Suprapubic). Absent: distended Neurological exam: Present: alert, oriented X3, CN II-XII intact Psychiatric exam: Present: normal affect, normal mood Skin exam: Present: warm, dry, intact, normal color. Absent: rash <Sera Camarillo - Last Filed: 12/14/24 17:25> Course Vital Signs 12/14/24 12/14/24 12/14/24 13:49 15:05 17:00 Temperature 98.3 F Pulse Rate 69 68 86 Respiratory 16 16 16 Rate Blood Pressure 143/96 140/96 140/86 O2 Sat by Pulse 99 98 98 Oximetry Medical Decision Making - Lab Data Result diagrams: 12/14/24 14:03 12/14/24 14:03 - Radiology Data Radiology results: report reviewed, image reviewed <Sera Camarillo - Last Filed: 12/14/24 17:25> - Lab Data Result diagrams: 12/14/24 14:03 12/14/24 14:03 <Yeimy Beck - Last Filed: 12/14/24 18:58> - Medical Decision Making This is an 84-year-old female who presents to the emergency department for abdominal pain. Was pt. sent in by a medical professional or institution? @ -No Did you speak to anyone other than the patient for history? @ -No Did you review nursing and triage notes? @ -Yes, and I agree, it is accurate with regards to the patient's symptoms. Were old charts reviewed? @ -No Differential Diagnosis? @ -Differential Abdominal Pain Women: Appendicitis, Cholecystitis, diverticulosis, ischemic bowel, pancreatitis, hepatitis, UTI, gastroenteritis, AAA, incarcerated hernia, bowel obstruction, constipation, inflammatory bowel, hepatitis, peptic ulcer disease, splenic infarction, perforated viscus, vulvitis, ovarian torsion, PID, kidney stone, placenta abruption, this is not meant to be an all-inclusive list EKG interpreted by me (3pts min.)? @ -EKG interpreted by me demonstrating the following: Atrial fibrillation. Ventricular rate 77 bpm, QRS duration 129 ms, QTc 457 ms. X-rays interpreted by me (1pt min.)? @ -KUB x-ray obtained. My interpretation identifies no dilation of the bowel loops. CT interpreted by me (1pt min.)? @ -Not obtained U/S interpreted by me (1pt. min.)? @ -Not obtained What testing was considered but not performed? (CT, X-rays, U/S, labs)? Why? @ -None What meds were considered but not given? Why? @ -None Did you discuss the management of the patient with other professionals? @ -No Did you reconcile home meds? @ -No Was smoking cessation discussed for >3mins.? @ -No Was critical care preformed (if so, how long)? @ -No Were there social determinants of health that impacted care today? How? (Homelessness, low income, unemployed, alcoholism, drug addiction, transportation, low edu. Level, literacy, decrease access to med. care, senior living, rehab)? @ -No Was there de-escalation of care discussed even if they declined? (Discuss DNR or withdrawal of care, Hospice)? @ -No What co-morbidities impacted this encounter? (DM, HTN, Smoking, COPD, CAD, Cancer, CVA, Hep., AIDS, mental health diagnosis, sleep apnea, morbid obesity)? @ -HTN, A-fib Was patient admitted / discharged? @ -Lab work unremarkable. Urinalysis negative for signs of infection. KUB x- ray obtained demonstrating large overall stool burden. 500 mL of normal saline administered. We attempted a Fleet enema with no success. Milk molasses enema then administered. However, afterwards she only produced small firm stools. Manual disimpaction attempted and nothing was felt in the rectal vault. Discussed the options of a CT scan for further evaluation versus oral laxative. Patient requested to proceed with a CT scan. CT scan of the abdomen and pelvis ordered for further evaluation. Case signed out to Yeimy Beck PA-C, at shift completion pending reevaluation and disposition. Undiagnosed new problem with uncertain prognosis? @ -None Drug Therapy requiring intensive monitoring for toxicity (Heparin, Nitro, Insulin, Cardizem)? @ -None Were any procedures done? @ -None (Sera Camarillo) Was pt. sent in by a medical professional or institution (JESSICA Valadez, CHEMICAL PROCESSING TECHNICIAN, urgent care, hospital, or fpc...) When possible be specific @ -No Did you speak to anyone other than the patient for history (EMS, parent, family, police, friend...)? What history was obtained from this source @ -No Did you review nursing and triage notes (agree or disagree)? Why? @ -I reviewed and agree with nursing and triage notes Were old charts reviewed (outside hosp., previous admission, EMS record, old EKG, old radiological studies, urgent care reports/EKG's, fpc records)? Report findings @ -No old charts were reviewed Differential Diagnosis (chest pain, altered mental status, abdominal pain women, abdominal pain men, vaginal bleeding, weakness, fever, dyspnea, syncope, headache, dizziness, GI bleed, back pain, seizure, CVA, palpatations, mental health, musculoskeletal)? @ -Differential Abdominal Pain Women: Appendicitis, Cholecystitis, diverticulosis, ischemic bowel, pancreatitis, hepatitis, UTI, gastroenteritis, AAA, incarcerated hernia, bowel obstruction, constipation, inflammatory bowel, hepatitis, peptic ulcer disease, splenic infarction, perforated viscus, vulvitis, ovarian torsion, PID, kidney stone, placenta abruption, this is not meant to be an all-inclusive list EKG interpreted by me (3pts min.). @ -None X-rays interpreted by me (1pt min.). @ -KUB shows large stool burden throughout colon CT interpreted by me (1pt min.). @ -CT abdomen pelvis shows circumferential wall thickening of rectum and sigmoid colon compatible with proctitis/colitis with upstream and dilation of exam with stool U/S interpreted by me (1pt. min.). @ -None done What testing was considered but not performed or refused? (CT, X-rays, U/S, labs)? Why? @ -None What meds were considered but not given or refused? Why? @ -None Did you discuss the management of the patient with other professionals (professionals i.e. , PA, CHEMICAL PROCESSING TECHNICIAN, lab, RT, psych nurse, medical social consultant, photogrammetrist, teacher, classification officer, cyanide case hardener)? Give summary @ -I spoke with Dr. Cobb who accepts admission for colitis/proctitis Was smoking cessation discussed for >3mins.? @ -No Was critical care preformed (if so, how long)? @ -No Were there social determinants of health that impacted care today? How? (Homelessness, low income, unemployed, alcoholism, drug addiction, transportation, low edu. Level, literacy, decrease access to med. care, senior living, rehab)? @ -No Was there de-escalation of care discussed even if they declined (Discuss DNR or withdrawal of care, Hospice)? DNR status @ -No What co-morbidities impacted this encounter? (DM, HTN, Smoking, COPD, CAD, Cancer, CVA, ARF, Chemo, Hep., AIDS, mental health diagnosis, sleep apnea, morbid obesity)? @ -None Was patient admitted / discharged? Hospital course, mention meds given and route, prescriptions, significant lab abnormalities, going to OR and other pertinent info. @ -Admitting. 84-year-old female presenting for abdominal pain x 3 days with constipation. Case was signed out to me by Sera Camarillo PA-C pending CT results, reevaluation, and disposition. Lab work largely unremarkable. Normal white blood cell count, no lactic acidosis. CT abdomen pelvis shows circumferential wall thickening of rectum and sigmoid colon compatible with proctitis/colitis with upstream and dilation of exam with stool. Upon reevaluation, patient reports persistent lower abdominal pain. Given patient's age, she will be admitted to medicine for IV antibiotics for colitis/proctitis. Case was discussed with my ED attending Dr. Richey Undiagnosed new problem with uncertain prognosis? @ -No Drug Therapy requiring intensive monitoring for toxicity (Heparin, Nitro, Insulin, Cardizem)? @ -No Were any procedures done? @ -No Diagnosis/symptom? @ -Colitis/proctitis Acute, or Chronic, or Acute on Chronic? @ -Acute Uncomplicated (without systemic symptoms) or Complicated (systemic symptoms)? @ -Complicated Side effects of treatment? @ -No Exacerbation, Progression, or Severe Exacerbation? @ -No Poses a threat to life or bodily function? How? (Chest pain, USA, SD, pneumonia, PE, COPD, DKA, ARF, appy, cholecystitis, CVA, Diverticulitis, Homicidal, Suicidal, threat to staff... and all critical care pts) @ -Unlikely at this time (Yeimy Beck) - Lab Data Lab Results 12/14/24 12/14/24 12/14/24 Range/Units 14:03 14:03 14:03 WBC 6.49 (4.50-10.00) 10*3/uL RBC 4.74 (4.10-5.20) 10*6/uL Hgb 13.9 (12.0-15.0) g/dL Hct 42.3 (37.2-46.3) % MCV 89.2 (80.0-97.0) fL MCH 29.3 (27.0-32.0) pg MCHC 32.9 (32.0-37.0) g/dL Plt Count 144 (140-440) 10*3/uL MPV 12.9 H (9.5-12.2) fL Immature Gran % (Auto) 0.3 % Neutrophils % 68.1 % Lymphocytes % 18.0 % Monocytes % 9.7 % Eosinophils % 3.1 % Basophils % 0.8 % Immature Gran # 0.02 (0.00-0.04) 10*3/uL Neutrophils # 4.42 (1.80-7.70) 10*3/uL Lymphocytes # 1.17 (0.90-5.00) 10*3/uL Monocytes # 0.63 (0.20-1.00) 10*3/uL Eosinophils # 0.20 (0.04-0.35) 10*3/uL Basophils # 0.05 (0.00-0.10) 10*3/uL Sodium 136 L (137-145) mmol/L Potassium 5.0 (3.5-5.1) mmol/L Chloride 104 (98-107) mmol/L Carbon Dioxide 22 (22-30) mmol/L Anion Gap 10 mmol/L BUN 23 H (7-17) mg/dL Creatinine 0.86 (0.52-1.04) mg/dL Est GFR (CKD-EPI)AfAm 73 (>60 ml/min/1.73 sqM) Est GFR (CKD-EPI)NonAf 63 (>60 ml/min/1.73 sqM) Glucose 111 H (74-99) mg/dL Plasma Lactic Acid Lewis 1.5 (0.7-2.0) mmol/L Calcium 9.0 (8.4-10.2) mg/dL Magnesium 1.8 (1.6-2.3) mg/dL Total Bilirubin 1.5 H (0.2-1.3) mg/dL AST 31 (14-36) U/L ALT 17 (4-34) U/L Alkaline Phosphatase 74 (38-126) U/L Total Protein 5.8 L (6.3-8.2) g/dL Albumin 3.7 (3.5-5.0) g/dL Lipase 60 (23-300) U/L Urine Color Urine Appearance (Clear) Urine pH (5.0-8.0) Ur Specific [place] (1.001-1.035) Urine Protein (Negative) Urine Glucose (UA) (Negative) Urine Ketones (Negative) Urine Blood (Negative) Urine Nitrite (Negative) Urine Bilirubin (Negative) Urine Urobilinogen (<2.0) mg/dL Ur Leukocyte Esterase (Negative) 12/14/24 Range/Units 14:33 WBC (4.50-10.00) 10*3/uL RBC (4.10-5.20) 10*6/uL Hgb (12.0-15.0) g/dL Hct (37.2-46.3) % MCV (80.0-97.0) fL MCH (27.0-32.0) pg MCHC (32.0-37.0) g/dL Plt Count (140-440) 10*3/uL MPV (9.5-12.2) fL Immature Gran % (Auto) % Neutrophils % % Lymphocytes % % Monocytes % % Eosinophils % % Basophils % % Immature Gran # (0.00-0.04) 10*3/uL Neutrophils # (1.80-7.70) 10*3/uL Lymphocytes # (0.90-5.00) 10*3/uL Monocytes # (0.20-1.00) 10*3/uL Eosinophils # (0.04-0.35) 10*3/uL Basophils # (0.00-0.10) 10*3/uL Sodium (137-145) mmol/L Potassium (3.5-5.1) mmol/L Chloride (98-107) mmol/L Carbon Dioxide (22-30) mmol/L Anion Gap mmol/L BUN (7-17) mg/dL Creatinine (0.52-1.04) mg/dL Est GFR (CKD-EPI)AfAm (>60 ml/min/1.73 sqM) Est GFR (CKD-EPI)NonAf (>60 ml/min/1.73 sqM) Glucose (74-99) mg/dL Plasma Lactic Acid Lewis (0.7-2.0) mmol/L Calcium (8.4-10.2) mg/dL Magnesium (1.6-2.3) mg/dL Total Bilirubin (0.2-1.3) mg/dL AST (14-36) U/L ALT (4-34) U/L Alkaline Phosphatase (38-126) U/L Total Protein (6.3-8.2) g/dL Albumin (3.5-5.0) g/dL Lipase (23-300) U/L Urine Color Colorless Urine Appearance Clear (Clear) Urine pH 7.0 (5.0-8.0) Ur Specific [place] 1.007 (1.001-1.035) Urine Protein Negative (Negative) Urine Glucose (UA) Negative (Negative) Urine Ketones Negative (Negative) Urine Blood Negative (Negative) Urine Nitrite Negative (Negative) Urine Bilirubin Negative (Negative) Urine Urobilinogen <2.0 (<2.0) mg/dL Ur Leukocyte Esterase Negative (Negative) Disposition <Sera Camarillo - Last Filed: 12/14/24 17:25> Time of Disposition: 18:55 <Yeimy Beck - Last Filed: 12/14/24 18:58> Clinical Impression: Colitis, Proctitis Disposition: ADMITTED IP TO THIS HOSP Referrals: McPhilimy,Jose, DO [Primary Care Provider] - 1-2 days
[2024-12-14 14:31] LABS: ALT 17 U/L (4-34); AST 31 U/L (14-36); African American GFR (CKD) 73 (>60 ml/min/1.73 sqM); Albumin 3.7 g/dL (3.5-5.0); Alkaline Phosphatase 74 U/L (38-126); Anion Gap 10 mmol/L; Blood Urea Nitrogen 23 mg/dL (7-17); Calcium 9.0 mg/dL (8.4-10.2); Carbon Dioxide 22 mmol/L (22-30); Chloride 104 mmol/L (98-107); Glucose 111 mg/dL (74-99); Lipase 60 U/L (23-300); Magnesium 1.8 mg/dL (1.6-2.3); Non-African American GFR(CKD) 63 (>60 ml/min/1.73 sqM); Potassium 5.0 mmol/L (3.5-5.1); Sodium 136 mmol/L (137-145); Total Protein 5.8 g/dL (6.3-8.2)
[2024-12-14 14:44] LABS: Bilirubin,Urine Negative (Negative); Blood,Urine Negative (Negative); Color,Urine Colorless; Glucose,Urine (UA) Negative (Negative); Ketones,Urine Negative (Negative); Leukocyte Esterase,Urine Negative (Negative); Nitrite,Urine Negative (Negative); PH, Urine 7.0 (5.0-8.0); Protein,Urine Negative (Negative); Specific Gravity,Urine 1.007 (1.001-1.035); Urobilinogen,Urine <2.0 mg/dL (<2.0)
[2024-12-14 14:53] LABS: Platelet Count 144 10*3/uL (140-440)
[2024-12-14] MEDS: SODIUM CHLORIDE 0.9% 500 ML 500 ML IV ONE (15:04)
--- NOTE | 2024-12-14 15:13 | XR ---
EXAMINATION TYPE: XR KUB DATE OF EXAM: 12/14/2024 2:49 PM COMPARISON: 11/01/2012. CLINICAL INDICATION: Female, 84 years old with history of abdominal pain; [facility] TECHNIQUE: One radiographic view of the abdomen was obtained. FINDINGS: Large amount stool in the colon with gaseous dilation. The bowel gas pattern is nonspecific without dilated loops of small or large bowel. . Fecal material and gas are demonstrated throughout the colon and rectum. There is no evidence for organomegaly or pneumoperitoneum. No acute osseous pr ocess. No abnormal calcifications are present. Right upper quadrant cholecystectomy clips. IMPRESSION: Large amount stool throughout colon, otherwise Nonspecific bowel gas pattern without radiographic anson dence for acute process. [facility], , 12/14/2024 3:10 PM
[2024-12-14] MEDS: NA PHOS,M-B/NA PHOS,DI-BA 133 ML ENEMA RECTAL STA (15:46)
--- NOTE | 2024-12-14 18:09 | CT ---
EXAMINATION TYPE: CT abdomen pelvis w con DATE OF EXAM: 12/14/2024 5:50 PM COMPARISON: None. CLINICAL INDICATION: Female, 84 years old with history of Abdominal pain, constipation; lower abdomen pain for 3 days last bm 3 days ago TECHNIQUE: Axial CT abdomen pelvis w con;Sagittal and coronal reformats were created on a separate w orkstation. Contrast used:100ml mL of Isovue 300 with IV Contrast, (none if empty) Oral contrast used: without Oral Contrast (none if empty) CT DLP: 1101.6 mGycm, Automated exposure control for dose reduction was used. FINDINGS: LOWER CHEST: The heart is moderately enlarged for size. Benign-appearing right breast calcifications. ABDOMEN LIVER: simple appearing hepatic cyst and follow-up recommended. GALLBLADDER AND BILE DUCTS: Gallbladder is surgically absent with mild intrahepatic and extra hepatic biliary dilatation likely physiologic and a postcholecystectomy change. No evidence of choledocholit hiasis. PANCREAS: Unremarkable. SPLEEN: Simple appearing splenic cyst. ADRENAL GLANDS: Unremarkable. KIDNEYS AND URETERS: No evidence of hydronephrosis or obstructing renal calculus. The ureters are unr emarkable. PELVIS BLADDER: No evidence for wall thickening or mass given limitations of exam. REPRODUCTIVE: Unremarkable. ABDOMEN & PELVIS STOMACH AND BOWEL: Postsurgical changes of the gastric lumen. Sequential wall thickening and hyperemi a of the sigmoid colon and rectum resulting in upstream dilation of the large bowel with stool. Posts urgical changes of the small bowel in the upper left quadrant. PERITONEUM/RETROPERITONEUM: No evidence of pneumoperitoneum or free fluid.. The pelvic floor extends below the pubococcygeal line up to 3.4 cm VASCULATURE: No evidence of aortic aneurysm. MUSCULOSKELETAL: No acute osseous abnormalities LYMPH NODES: No gross evidence for lymphadenopathy. SOFT TISSUE/ABDOMINAL WALL: Unremarkable IMPRESSION: 1. Circumferential wall thickening of the rectum and sigmoid colon compatible with proctitis/colitis with upstream in dilation of colon with stool. Colonoscopy recommended if not recently performed. B owel measurement recommended. 2. Pelvic floor prolapse. 3. Gallbladder is surgically absent with mild intrahepatic and extra hepatic biliary dilatation like ly physiologic and a postcholecystectomy change. No evidence of choledocholithiasis. 4. Moderate cardiomegaly. 5. Simple appearing hepatic cyst. No follow-up recommended. 6. Simple appearing renal cysts. No follow-up recommended. [facility], , 12/14/2024 6:07 PM
[2024-12-14] MEDS ORDERED: ACETAMINOPHEN TAB 325 MG TAB PO PRN (18:51)
[2024-12-14] MEDS ORDERED: NALOXONE 0.4 MG/ML 1 ML VIAL IV PRN (18:51)
[2024-12-14] MEDS: DILTIAZEM CD 120 MG CAP.ER.24H PO SCH (20:19)
[2024-12-14] MEDS: metroNIDAZOLE-NS PMX 500 MG in SALINE 1 100ML.BAG IVPB STA (20:19)
--- NOTE | 2024-12-14 21:34 | P.HPIM ---
History of Present Illness H&P Date: 12/14/24 Patient is a 84 y/o F with PMHx Afib, HTN, OA, hypothyroid, and breast cancer presenting with no BM since tuesday and weakness/fatigue. Her last BM was tuesday, took some dulcolax on tuesday and passed a little stool but much less than what is normal for her. At 8am today, she woke up with fatigue, weakness, and minor lower abdominal pain. She checked her blood pressure in the morning which was slightly elevated. These sxs all progressed throughout the day until her son brought her into the hospital. Denies fevers, chills, N/V, diarrhea. Her last oral intake was 8am. She endorses flatulence. She was given 2x enemas in the ED with no benefit. Surgical Hx: -RYGB 2012 -Mastectomy 3 years ago Family Hx: -Mom, pancreatic cancer HRB: -No tobacco, alcohol, drugs Allergies: -Cozaar, Codeine, Penicillin --Gets rashes Imaging: -CT ABD 12/13/24: Circumferential Thickening of rectum and sigmoid colon. Suggest bowel measurement and colonoscopy Labs: WBC: 6.49 BUN: 23 Bili: 1.5 Vitals: 186/86, 98% O2, 19RR, 73BPM Review of systems: Pertinent positives and negatives as discussed in HPI, a complete review of systems was performed and all other systems are negative. Physical examination: Vital signs reviewed General: non toxic, no distress, appears at stated age, normal weight Derm: no unusual rashes/lesions, warm Head: atraumatic, normocephalic, symmetric Eyes: EOMI, anicteric sclera, pupils equal round reactive to light ENT: Nose and ears atraumatic Neck: No cervical lymphadenopathy, trachea midline, supple Mouth: no lip lesion, mucus membranes moist Cardiovascular: Irregularly Irregular, no murmur, positive dorsalis pedis pulse bilateral, no edema Lungs: CTA bilateral, no rhonchi, no rales, no accessory muscle use Abdominal: soft, Tender B/L lower quadrants, no rebound tenderness Assessment/Plan: Pt is 84 y/o F here for weakness, fatigue, and constipation likely 2/2 colitis #Colitis Pt has signs of colitis as indicated by her CT abd and sxs of constipation. No benefit after 2x enemas indicats a proximal impaction. Did not meet sepsis criteria Plan: -GI Consult -Lactic Acid -Rocephin and Flagyl -Lactulose # Stool impaction : Failed Fleet enema Continue with oral lactulose Consider consulting general surgery #Weakness Likely d/t poor oral intake and elevated blood pressures Fall precaution Plan: -Consult PT #Afib Patient was irregularly irregular during the ER visit. Plan: -Continue cardizem CODE STATUS: [FULL CODE] Discussed with: [Dr Vee] Attestation : Patient seen and examined with spanish medical interpreter. Agree with above assessment and plan. Is an 84-year-old female patient with a past medical history of chronic A-fib. Patient on Cardizem and chronically anticoagulated on Eliquis. Patient presented with lower abdominal pain, fatigue and weakness. She reports that her last bowel movement was on Tuesday. She reports that she usually has a bowel movement every day however she sometimes may complain of constipation and but resolves with the use of stool softener. This time she reports that her constipation was not resolving. She reports that her symptoms were progressively getting worse and her son had to bring her to the ER. No reports of fever or chills. She does not recall when was her last colonoscopy. CT of the abdomen showing stool impaction with findings of colitis. Continue with Rocephin and azithromycin. Patient failed Fleet enema. Continue with oral lactulose and consider consulting general surgery. Time spent : 55 min Past Medical History Past Medical History: Cancer, Hypertension, Osteoarthritis (OA), Thyroid Disorder Additional Past Medical History / Comment(s): breast ca with left mastectomy History of Any Multi-Drug Resistant Organisms: None Reported Past Surgical History: Cholecystectomy, Hysterectomy Additional Past Surgical History / Comment(s): RYGB 08/2012. gastric bypass. mastectomy Past Anesthesia/Blood Transfusion Reactions: No Reported Reaction Past Psychological History: No Psychological Hx Reported Smoking Status: Never smoker Past Alcohol Use History: None Reported Past Drug Use History: None Reported Medications and Allergies Home Medications Medication Instructions Recorded Confirmed Type lisinopriL 40 mg PO DAILY 06/20/24 12/14/24 History Apixaban [Eliquis] 5 mg PO BID #90 tab 06/21/24 12/14/24 Rx Diltiazem Cd [Cardizem CD] 120 mg PO DAILY #90 cap 06/21/24 12/14/24 Rx Bisoprolol Fumarate 5 mg PO DAILY 12/14/24 12/14/24 History Flecainide Acetate [Tambocor] 100 mg PO BID 12/14/24 12/14/24 History Levothyroxine Sodium [Synthroid] 100 mcg PO DAILY 12/14/24 12/14/24 History amLODIPine [Norvasc] 2.5 mg PO DAILY 12/14/24 12/14/24 History Allergies Allergy/AdvReac Type Severity Reaction Status Date / Time cortisone Allergy Unknown Verified 12/14/24 19:16 losartan potassium Allergy Rash/Hives Verified 12/14/24 19:16 [From Cozaar] Penicillins Allergy Rash/Hives Verified 12/14/24 19:16 - cillins Physical Exam Vitals: Vital Signs Temp Pulse Resp BP Pulse Ox 12/14/24 19:26 97.9 F 73 19 186/86 98 12/14/24 17:00 86 16 140/86 98 12/14/24 15:05 68 16 140/96 98 12/14/24 13:49 98.3 F 69 16 143/96 99 Intake and Output 12/14/24 12/14/24 12/14/24 06:59 14:59 22:59 Other: Weight 82.1 kg Results CBC & Chem 7: 12/14/24 14:03 12/14/24 14:03 Labs: Abnormal Lab Results - Last 24 Hours (Table) 12/14/24 12/14/24 Range/Units 14:03 14:03 MPV 12.9 H (9.5-12.2) fL Sodium 136 L (137-145) mmol/L BUN 23 H (7-17) mg/dL Glucose 111 H (74-99) mg/dL Total Bilirubin 1.5 H (0.2-1.3) mg/dL Total Protein 5.8 L (6.3-8.2) g/dL
[2024-12-14] MEDS: LACTULOSE 20 GM/30 ML CUP PO SCH (22:20)
[2024-12-15] MEDS: APIXABAN 5 MG TAB PO SCH (00:40)
[2024-12-15] MEDS: metroNIDAZOLE-NS PMX 500 MG in SALINE 1 100ML.BAG IVPB SCH (08:49)
[2024-12-15 11:49] LABS: Basophils # (A) 0.03 10*3/uL (0.00-0.10); Basophils % (A) 0.5 %; Eosinophils # (A) 0.19 10*3/uL (0.04-0.35); Eosinophils % (A) 2.9 %; HCT 40.5 % (37.2-46.3); HGB 13.3 g/dL (12.0-15.0); Immature Platelet Fraction 12.5 % (1.1-6.1); Lymphocytes # (A) 0.88 10*3/uL (0.90-5.00); Lymphocytes % (A) 13.5 %; MCH 30.0 pg (27.0-32.0); MCHC 32.8 g/dL (32.0-37.0); MCV 91.4 fL (80.0-97.0); Monocytes # (A) 0.59 10*3/uL (0.20-1.00); Monocytes % (A) 9.0 %; Neutrophils # (A) 4.81 10*3/uL (1.80-7.70); Neutrophils % (A) 73.8 %; Platelet Count 139 10*3/uL (140-440); RBC 4.43 10*6/uL (4.10-5.20); RDW 14.5 % (11.5-14.5); WBC 6.52 10*3/uL (4.50-10.00)
[2024-12-15] MEDS: LEVOTHYROXINE 100 MCG TAB PO SCH (11:52)
[2024-12-15 11:59] LABS: African American GFR (CKD) 63 (>60 ml/min/1.73 sqM); Anion Gap 9 mmol/L; Blood Urea Nitrogen 20 mg/dL (7-17); Calcium 9.1 mg/dL (8.4-10.2); Carbon Dioxide 24 mmol/L (22-30); Chloride 104 mmol/L (98-107); Glucose 117 mg/dL (74-99); Non-African American GFR(CKD) 55 (>60 ml/min/1.73 sqM); Potassium 4.4 mmol/L (3.5-5.1); Sodium 137 mmol/L (137-145)
[2024-12-15] MEDS: MAGNESIUM CITRATE 296 ML BOTTLE PO ONE (13:26)
[2024-12-15] MEDS: ONDANSETRON 4 MG/2 ML VIAL IVP PRN (14:02)
--- NOTE | 2024-12-15 15:00 | P.PN ---
Subjective Progress Note Date: 12/15/24 Hospital Course: Patient is a 84 y/o F with PMHx Afib, HTN, OA, hypothyroid, and breast cancer presenting with no BM since Tuesday(12/11) and weakness/fatigue and minor lower abdominal pain. Also found to have an elevated blood pressure. These sxs all progressed throughout the day until her son brought her into the hospital. Denies fevers, chills, N/V, diarrhea. Her last oral intake was 8am. She endorses flatulence. She was given 2x enemas in the ED with no benefit. Subjective: Patient seen and examined at bedside. No acute events overnight. Pt notes her weakness and fatigue have improved significantly since yesterday. She still endorses lower abdominal pain that will intermittently be sharp when the pressure builds. She still has not had a BM. She denies fevers, chills, N/V, CP, SOB, dysuria. Pertinent positives and negatives as discussed above, a complete review of systems was performed and all other systems are negative. Vitals: Signs Reviewed Physical Exam: General: nontoxic, no distress, appears at stated age Derm: warm, dry, intact Head: atraumatic, normocephalic, symmetric Eyes: EOMI, anicteric sclera Mouth: no lip lesion, mucus membranes moist Cardiovascular: Irregularly irregular, no murmur, rubs, or gallops Lungs: CTA bilateral, no rhonchi, no rales, no accessory muscle use Abdominal: soft, RLQ and LLQ tenderness to palpation, no guarding or rebound tenderness Extremities: no gross muscle atrophy, trace pitting edema bilaterally, tenderness to right knee (pt states nerve damage) Neuro: Alert, Oriented, CNII-XII grossly intact, gait normal Psych: well appearing, appropriate affect Data Received Today: Pertinent Labs: CBC unremarkable, Na 137, potassium 4.4, BUN 20, creatinine 0.96 Imaging: None today. Assessment and Plan: #. Colitis likely secondary to stool impaction - Continue antibiotics: Ceftriaxone 1g q24h and metronidazole 500 mg BID - Continue lactulose 20 g p.o. 3 times daily - Ordered magnesium citrate once - Monitor for bowel movements - Consulted general surgery, recs appreciated. #. Weakness likely secondary to poor oral intake - Continue to monitor - Blood culture pending - PT/OT consulted Chronic A-fib - Continue home meds (Cardizem, flecainide, Eliquis) HTN - continue home meds (Bisprolol). Holding amlodipine, lisinopril. Hypothyroidism- continue home meds (levothyroxine) Diet: Clear liquid diet DVT ppx: Eliquis Code status: Full code Anticipated discharge place: Home Anticipated discharge time: Pending clinical course, 24-48 hours Natty Banks DO PGY-1 IM Dictation was produced using [employer] dictation software. please excuse any grammatical, word or spelling errors. I have seen and evaluated the patient today. Discussed with the resident and agree with the residents finding and plan as documented in the resident's note. Changes highlighted in blue font. Objective - Vital Signs Vital signs: Vital Signs Temp 97.7 F 12/15/24 07:05 Pulse 73 12/15/24 14:00 Resp 16 12/15/24 07:05 BP 153/88 12/15/24 14:00 Pulse Ox 96 12/15/24 14:00 FiO2 Intake & Output 12/14/24 12/15/24 12/15/24 18:59 06:59 18:59 Intake Total 560 Balance 560 Weight 82.1 kg 82.1 kg Intake: Oral 560 Other: Voiding Method Toilet # Voids 3 # Bowel Movements 0 - Labs CBC & Chem 7: 12/15/24 11:32 12/15/24 11:32 Labs: Abnormal Lab Results - Last 24 Hours (Table) 12/15/24 12/15/24 Range/Units 11:32 11:32 Plt Count 139 L (140-440) 10*3/uL MPV 13.7 H (9.5-12.2) fL Lymphocytes # 0.88 L (0.90-5.00) 10*3/uL Immature Plt Fraction 12.5 H (1.1-6.1) % BUN 20 H (7-17) mg/dL Glucose 117 H (74-99) mg/dL
--- NOTE | 2024-12-15 15:49 | P.GSCN ---
History of Present Illness Consult date: 12/15/24 History of present illness: Patient seen and evaluated. Full consultation in progress. Patient well-known from gastric bypass 10+ years ago. Patient also have symptoms of dysphagia. Recommend upper endoscopy. With the presence of colitis, colonoscopy at this time is ill-advised for high risk for perforation. Features of diverticulitis confirmed on CT scan upon independent review. Agree with antibiotics. Outpatient colonoscopy described. Adjust diet to low sugar due to gastric bypass history. All questions addressed. Past Medical History Past Medical History: Atrial Fibrillation, Cancer, Hypertension, Osteoarthritis (OA), Pneumonia, Thyroid Disorder Additional Past Medical History / Comment(s): breast ca with left mastectomy History of Any Multi-Drug Resistant Organisms: None Reported Past Surgical History: Bariatric Surgery, Cholecystectomy, Hysterectomy Additional Past Surgical History / Comment(s): RYGB 08/2012. gastric bypass. mastectomy Past Anesthesia/Blood Transfusion Reactions: No Reported Reaction Past Psychological History: No Psychological Hx Reported Smoking Status: Never smoker Past Alcohol Use History: None Reported Past Drug Use History: None Reported - Past Family History Mother Family Medical History: Cancer Additional Family Medical History / Comment(s): pancreatic cancer Father Family Medical History: Diabetes Mellitus, Hypertension Medications and Allergies Home Medications Medication Instructions Recorded Confirmed Type lisinopriL 40 mg PO DAILY 06/20/24 12/14/24 History Apixaban [Eliquis] 5 mg PO BID #90 tab 06/21/24 12/14/24 Rx Diltiazem Cd [Cardizem CD] 120 mg PO DAILY #90 cap 06/21/24 12/14/24 Rx Bisoprolol Fumarate 5 mg PO DAILY 12/14/24 12/14/24 History Flecainide Acetate [Tambocor] 100 mg PO BID 12/14/24 12/14/24 History Levothyroxine Sodium [Synthroid] 100 mcg PO DAILY 12/14/24 12/14/24 History amLODIPine [Norvasc] 2.5 mg PO DAILY 12/14/24 12/14/24 History Allergies Allergy/AdvReac Type Severity Reaction Status Date / Time cortisone Allergy Unknown Verified 12/14/24 19:16 losartan potassium Allergy Rash/Hives Verified 12/14/24 19:16 [From Cozaar] Penicillins Allergy Rash/Hives Verified 12/14/24 19:16 - cillins Surgical - Exam Vital Signs Temp Pulse Resp BP Pulse Ox 98.3 F 69 16 143/96 99 12/14/24 13:49 12/14/24 13:49 12/14/24 13:49 12/14/24 13:49 12/14/24 13:49 Results - Labs 12/15/24 11:32 12/15/24 11:32 Abnormal Lab Results - Last 24 Hours (Table) 12/15/24 12/15/24 Range/Units 11:32 11:32 Plt Count 139 L (140-440) 10*3/uL MPV 13.7 H (9.5-12.2) fL Lymphocytes # 0.88 L (0.90-5.00) 10*3/uL Immature Plt Fraction 12.5 H (1.1-6.1) % BUN 20 H (7-17) mg/dL Glucose 117 H (74-99) mg/dL Diabetes panel 12/15/24 Range/Units 11:32 Sodium 137 (137-145) mmol/L Potassium 4.4 (3.5-5.1) mmol/L Chloride 104 (98-107) mmol/L Carbon Dioxide 24 (22-30) mmol/L BUN 20 H (7-17) mg/dL Creatinine 0.96 (0.52-1.04) mg/dL Glucose 117 H (74-99) mg/dL Calcium 9.1 (8.4-10.2) mg/dL Thyroid panel 12/14/24 Range/Units 14:03 TSH 3.740 (0.465-4.680) mIU/L Calcium panel 12/15/24 Range/Units 11:32 Calcium 9.1 (8.4-10.2) mg/dL Pituitary panel 12/14/24 12/15/24 Range/Units 14:03 11:32 Sodium 137 (137-145) mmol/L Potassium 4.4 (3.5-5.1) mmol/L Chloride 104 (98-107) mmol/L Carbon Dioxide 24 (22-30) mmol/L BUN 20 H (7-17) mg/dL Creatinine 0.96 (0.52-1.04) mg/dL Glucose 117 H (74-99) mg/dL Calcium 9.1 (8.4-10.2) mg/dL TSH 3.740 (0.465-4.680) mIU/L Adrenal panel 12/15/24 Range/Units 11:32 Sodium 137 (137-145) mmol/L Potassium 4.4 (3.5-5.1) mmol/L Chloride 104 (98-107) mmol/L Carbon Dioxide 24 (22-30) mmol/L BUN 20 H (7-17) mg/dL Creatinine 0.96 (0.52-1.04) mg/dL Glucose 117 H (74-99) mg/dL Calcium 9.1 (8.4-10.2) mg/dL
[2024-12-15] MEDS: FLECAINIDE 50 MG TAB PO SCH (20:56)
[2024-12-16 05:38] LABS: African American GFR (CKD) 67 (>60 ml/min/1.73 sqM); Anion Gap 8 mmol/L; Blood Urea Nitrogen 19 mg/dL (7-17); Calcium 8.8 mg/dL (8.4-10.2); Carbon Dioxide 20 mmol/L (22-30); Chloride 105 mmol/L (98-107); Glucose 92 mg/dL (74-99); Non-African American GFR(CKD) 59 (>60 ml/min/1.73 sqM); Potassium 4.3 mmol/L (3.5-5.1); Sodium 133 mmol/L (137-145)
[2024-12-16 05:42] LABS: Basophils # (A) 0.04 10*3/uL (0.00-0.10); Basophils % (A) 0.6 %; Eosinophils # (A) 0.15 10*3/uL (0.04-0.35); Eosinophils % (A) 2.1 %; HCT 36.5 % (37.2-46.3); HGB 12.0 g/dL (12.0-15.0); Lymphocytes # (A) 1.00 10*3/uL (0.90-5.00); Lymphocytes % (A) 13.8 %; MCH 29.3 pg (27.0-32.0); MCHC 32.9 g/dL (32.0-37.0); MCV 89.2 fL (80.0-97.0); Monocytes # (A) 0.78 10*3/uL (0.20-1.00); Monocytes % (A) 10.7 %; Neutrophils # (A) 5.26 10*3/uL (1.80-7.70); Neutrophils % (A) 72.4 %; Platelet Count 120 10*3/uL (140-440); RBC 4.09 10*6/uL (4.10-5.20); RDW 14.5 % (11.5-14.5); WBC 7.26 10*3/uL (4.50-10.00)
[2024-12-16] MEDS: BISOPROLOL 5 MG TAB PO SCH (08:23)
--- NOTE | 2024-12-16 13:26 | P.PN ---
Subjective Progress Note Date: 12/16/24 Subjective: Patient seen and examined at bedside. No acute events overnight. Now having bowel movements. Pertinent positives and negatives as discussed above, a complete review of systems was performed and all other systems are negative. Vitals Signs Reviewed. General: Nontoxic, no distress, appears at stated age Derm: Warm, dry Head: Atraumatic, normocephalic, symmetric Eyes: EOMI, no lid lag, anicteric sclera Mouth: No lip lesion, mucus membranes moist Cardiovascular: S1S2 reg, no murmur Lungs: CTA bilateral, no rhonchi, no rales, no accessory muscle use Abdominal: Soft, nontender to palpation, no guarding, no appreciable organomegaly Ext: No gross muscle atrophy, no edema, no contractures Neuro: CN II-XI grossly intact, no focal neuro deficits Psych: Alert, oriented, appropriate affect Data Reviewed Today: Pertinent Labs: WBC 7.26, hemoglobin 12, platelet 120, sodium 133, bicarb 20, creatinine 0.91 Imaging: No new imaging Assessment and Plan: Active: Acute colitis Severe constipation, resolved History of bariatric surgery - Continue ceftriaxone 1 g IV every 24 hours, IV Flagyl 500 twice daily - General Surgery following, planning for EGD tomorrow - Bariatric full liquid diet - Continue lactulose 20 g 3 times daily Mild hyponatremia Mild non-anion gap metabolic acidosis - Stable, continue to monitor Chronic: Atrial fibrillation Hypothyroidism DVT ppx: Eliquis currently on hold Code status: Full code Anticipated discharge place: Pending clinical course Anticipated discharge time: Pending clinical course Objective - Vital Signs Vital signs: Vital Signs Temp 97.7 F 12/16/24 07:45 Pulse 73 12/16/24 07:45 Resp 16 12/16/24 08:17 BP 133/78 12/16/24 07:45 Pulse Ox 98 12/16/24 07:45 FiO2 Intake & Output 12/15/24 12/16/24 12/16/24 18:59 06:59 18:59 Intake Total 1040 360 Balance 1040 360 Intake: Oral 1040 360 Other: Voiding Method Toilet Toilet Toilet # Voids 1 # Bowel Movements 2 1 - Labs CBC & Chem 7: 12/16/24 04:37 12/16/24 04:45 Labs: Abnormal Lab Results - Last 24 Hours (Table) 12/16/24 12/16/24 Range/Units 04:37 04:45 RBC 4.09 L (4.10-5.20) 10*6/uL Hct 36.5 L (37.2-46.3) % Plt Count 120 L (140-440) 10*3/uL MPV 14.1 H (9.5-12.2) fL Sodium 133 L (137-145) mmol/L Carbon Dioxide 20 L (22-30) mmol/L BUN 19 H (7-17) mg/dL Microbiology - Last 24 Hours (Table) 12/14/24 19:20 Blood Culture - Preliminary Blood
--- NOTE | 2024-12-16 20:19 | P.PN ---
Subjective Progress Note Date: 12/16/24 CHIEF COMPLAINT: Dysphagia and proctitis HISTORY OF PRESENT ILLNESS: The patient is a 84-year-old female admitted for proctitis. She reported initially left lower quadrant and bilateral lower abdominal pain. She ends her up multiple laxatives, her abdominal pain is now resolved. She does report dysphagia to textured foods. She has pre-existing history of a gastric bypass without follow-up for over 10+ years. She reports tolerating her bariatric full liquid diet with minimal abdominal pain. ROS: No reports of nausea and vomiting. Having multiple bowel movements. No fevers or chills. No new chest pain. No productive sputum PHYSICAL EXAM: VITAL SIGNS: Reviewed CONSTITUTIONAL: Well developed and in no acute distress. EYES: Conjuctivae without sclera icterus. Extraocular movements grossly intact. HEAD, EARS, NOSE, THROAT: Moist buccal mucosa. Head is atraumatic, normocephalic. Hears conversational speech. No nasal drainage. RESPIRATORY: Non-labored respirations and equal bilateral excursions. CARDIOVASCULAR: Palpable 2+ radial pulses. ABDOMEN: No peritonitis. Resolved left lower quadrant pain. MUSCULOSKELETAL: No gross deformity of the lower extremities noted. No cl ubbing. No cyanosis. SKIN: Good skin turgor. Well perfused. NEUROLOGIC: Cranial nerves II through XII grossly intact. No focal or lateralizing signs. PSYCH: Appropriate affect. Alert and oriented to person, place and time. CLINICAL LABS: Reviewed. CBC, white blood cell count normal. ASSESSMENT: 1. Proctitis due to fecal retention 2. Fecal impaction 3. Bilateral lower abdominal pain 4. Dysphagia 5. Atrial fibrillation 6. Gastric bypass status PLAN: 1. Patient does report dysphagia where upper endoscopy with rigid and balloon dilation described to address her gastric bypass. 2. After upper endoscopy, patient may be stable for discharge with outpatient follow-up with the bariatric center. 3. All questions addressed. Dictation was produced using [employer] dictation software. Please excuse any grammatical, word or spelling errors. Objective - Vital Signs Vital signs: Vital Signs Temp 97.5 F L 12/16/24 19:46 Pulse 57 L 12/16/24 20:00 Resp 17 12/16/24 20:00 BP 96/59 12/16/24 19:46 Pulse Ox 98 12/16/24 19:46 FiO2 Intake & Output 0712/16/24 12/17/24 06:59 18:59 06:59 Intake Total 720 Balance 720 Intake: Oral 720 Other: Voiding Method Toilet Toilet Toilet # Voids 1 3 1 # Bowel Movements 1 1 1 - Labs CBC & Chem 7: 12/16/24 04:37 12/16/24 04:45 Labs: Abnormal Lab Results - Last 24 Hours (Table) 12/16/24 12/16/24 Range/Units 04:37 04:45 RBC 4.09 L (4.10-5.20) 10*6/uL Hct 36.5 L (37.2-46.3) % Plt Count 120 L (140-440) 10*3/uL MPV 14.1 H (9.5-12.2) fL Sodium 133 L (137-145) mmol/L Carbon Dioxide 20 L (22-30) mmol/L BUN 19 H (7-17) mg/dL Microbiology - Last 24 Hours (Table) 12/14/24 19:20 Blood Culture - Preliminary Blood
[2024-12-17 07:33] VITALS: RESP 15
[2024-12-17 08:26] LABS: Basophils # (A) 0.04 X 10*3/uL (0.00-0.10); Basophils % (A) 1.0 %; Eosinophils # (A) 0.38 X 10*3/uL (0.04-0.35); Eosinophils % (A) 9.2 %; HCT 34.3 % (37.2-46.3); HGB 10.6 g/dL (12.0-15.0); Immature Grans, Automated 0.20 %; Lymphocytes # (A) 1.03 X 10*3/uL (0.90-5.00); Lymphocytes % (A) 24.8 %; MCH 28.7 pg (27.0-32.0); MCHC 30.9 g/dL (32.0-37.0); MCV 93.0 FL (80.0-97.0); Monocytes # (A) 0.49 X 10*3/uL (0.20-1.00); Monocytes % (A) 11.8 %; NRBC Per 100 WBC 0 X 10*3/uL (0.00-0.01); Neutrophils # (A) 2.20 X 10*3/uL (1.80-7.70); Neutrophils % (A) 53.0 %; Platelet Count 111 X 10*3/uL (140-440); RBC 3.69 X 10*6/uL (4.10-5.20); RDW 14.6 % (11.5-14.5); WBC 4.15 X 10*3/uL (4.50-10.00)
[2024-12-17] MEDS ORDERED: PROPOFOL 10 MG/ML 20 ML VIAL IV ONE (08:29)
[2024-12-17 08:35] LABS: Anion Gap 9.00 mmol/L (4.00-12.00); BUN/Creat Ratio 19.27 Ratio (12.00-20.00); Blood Urea Nitrogen 21.2 mg/dL (9.0-27.0); Calcium 8.0 mg/dL (8.7-10.3); Carbon Dioxide 21.0 mmol/L (21.6-31.8); Chloride 110 mmol/L (96-109); Glucose 84 mg/dL (70-110); Potassium 4.7 mmol/L (3.5-5.5); Sodium 140 mmol/L (135-145)
--- NOTE | 2024-12-17 09:14 | P.PCN ---
Date of Procedure: 12/17/24 Description of Procedure: PREOPERATIVE DIAGNOSIS: Dysphagia. POSTOPERATIVE DIAGNOSIS: Presbyesophagus Gastric stenosis Gastrojejunal ulcer with partial obstruction without bleeding Diaphragmatic hiatal hernia OPERATION: Esophagojejunoscopy with balloon dilation 15 to 20 mm, for gastric stenosis SURGEON: Theresa Corbett MD ANESTHESIA: MAC. INDICATIONS: The patient is a 84-year-old female who presents with dysphagia. She has a gastric bypass. Benefits and risks of the procedure were described. Informed consent was obtained. DESCRIPTION: The patient was brought into the endoscopy suite and laid in the left lateral decubitus position. After a timeout was confirmed, the procedure was initiated. An Olympus gastroscope was passed to the posterior oropharynx where tertiary contractions consistent with presbyesophagus was identified. Initial findings are listed below. Next, iPayment 20 mm balloon was used to dilate the gastric pouch and anastomosis of 15 mm dilated to 20 mm. No bleeding was identified. The scope was passed 60 cm from the incisors. No full-thickness injury was encountered. The GI tract was desufflated. The patient tolerated the procedure well. FINDINGS: Presbyesophagus with tertiary contractions Gastrojejunal anastomosis with ulceration, 2 mm x 3 without active bleeding Gastrojejunal anastomosis dilated 15 to 20 mm balloon Diaphragmatic hiatal hernia, 1 cm RECOMMENDATIONS: Omeprazole 40 mg daily continue Recommend upper endoscopy rigid dilation and biopsies after treatment with omeprazole for 2 weeks Warm beverages prior to eating advised. Plan - Discharge Summary New Discharge Prescriptions: New Omeprazole [PriLOSEC] 40 mg PO DAILY #14 cap Continue lisinopriL 40 mg PO DAILY Diltiazem Cd [Cardizem CD] 120 mg PO DAILY #90 cap Apixaban [Eliquis] 5 mg PO BID #90 tab Bisoprolol Fumarate 5 mg PO DAILY Levothyroxine Sodium [Synthroid] 100 mcg PO DAILY amLODIPine [Norvasc] 2.5 mg PO DAILY Flecainide Acetate [Tambocor] 100 mg PO BID Discharge Medication List lisinopriL 40 mg PO DAILY 06/20/24 [History] Apixaban [Eliquis] 5 mg PO BID #90 tab 06/21/24 [Rx] Diltiazem Cd [Cardizem CD] 120 mg PO DAILY #90 cap 06/21/24 [Rx] Bisoprolol Fumarate 5 mg PO DAILY 12/14/24 [History] Flecainide Acetate [Tambocor] 100 mg PO BID 12/14/24 [History] Levothyroxine Sodium [Synthroid] 100 mcg PO DAILY 12/14/24 [History] amLODIPine [Norvasc] 2.5 mg PO DAILY 12/14/24 [History] Omeprazole [PriLOSEC] 40 mg PO DAILY #14 cap 12/17/24 [Rx] Follow up Appointment(s)/Referral(s): Jose Laura DO [Primary Care Provider] - 1-2 days [place], [place] [NON-STAFF] - 01/02/25 3:00 pm Patient Instructions/Handouts: Peptic Ulcer (DC), Esophageal Dilation (GEN), Nutrition after Bariatric Surgery (GEN) Activity/Diet/Wound Care/Special Instructions: Recommend low sugar diet for gastric bypass. Start omeprazole immediately to address ulcers. Discharge Disposition: HOME SELF-CARE
[2024-12-17] MEDS: PANTOPRAZOLE 40 MG TABLET PO SCH (09:39)
[2024-12-17 11:06] VITALS: TEMP 97.6
[2024-12-17 11:11] VITALS: BP 101/61; PULSE 66
[2024-12-17] MEDS: LACTATED RINGERS 1,000 ML IV ONE (11:52)
--- NOTE | 2024-12-17 13:23 | P.DS ---
Providers Date of admission: 12/16/24 13:26 Expected date of discharge: 12/17/24 Attending physician: Tushar Cobb Consults: 12/15/24 07:52 Consult Physician Routine Consulting Provider: Theresa Corbett Consult Reason/Comments: colitis, stool impaction Do you want consulting provider notified?: Yes Primary care physician: Jose Laura Hospital Course: Discharge Diagnosis: Acute colitis Severe constipation, resolved Presbyesophagus Gastric stenosis Gastrojejunal ulcer with partial obstruction without bleeding Diaphragmatic hiatal hernia History of bariatric surgery Hyponatremia - resolved Mild non-anion gap metabolic acidosis A-fib Hypothyroidism Hospital Course: Patient is a 84 y/o F with PMHx Afib, HTN, OA, hypothyroid, and breast cancer presenting with no BM since Tuesday (12/11) and weakness/fatigue and minor lower abdominal pain. Also found to have an elevated blood pressure. These sxs all progressed throughout the day until her son brought her into the hospital. Denies fevers, chills, N/V, diarrhea. Her last oral intake was 8am. She endorses flatulence. She was given 2x enemas in the ED with no benefit. While inpatient, pt was started on laxatives and is now having bowel movements. Surgery was consulted and an EGD was performed. EGD showed gastric stenosis, which was dilated, presbyesophagus, gastrojejunal ulcer, and hiatal hernia. Pt is stable after the procedure and was started on omeprazole 40 mg daily which she will continue outpatient. Surgery recommends pt receive upper endoscopy rigid dilation and biopsies after treatment with omperazole for 2 weeks. Pt to f/u with PCP (Dr. Laura) in 1-2 days and bariatric surgery on 01/02/25. Patient seen and examined at bedside. Pt is stable with no complaints. Vital signs reviewed and stable. Physical examination: Vital signs reviewed General: non toxic, no distress, appears at stated age, normal weight Derm: no unusual rashes/lesions, warm Head: atraumatic, normocephalic, symmetric Eyes: EOMI, anicteric sclera, pupils equal round reactive to light ENT: Nose and ears atraumatic Mouth: no lip lesion, mucus membranes moist Cardiovascular: S1S2 reg, no murmurl, no edema Lungs: CTA bilateral, no rhonchi, no rales, no accessory muscle use Abdominal: soft, nontender to palpation, no guarding Ext: muscle strength 5 out of 5 in all 4 extremities grossly, no gross muscle atrophy Neuro: CN II-XI grossly intact, no gross focal neuro deficits Psych: Alert, oriented to person, place, and time A total of greater than 30 minutes of time were spent preparing this complex discharge summary. Patient was discharged on 12/17/2024. Natty Banks DO PGY1 IM Dictation was produced using [employer] dictation software. please excuse any grammatical, word or spelling errors. I have seen and evaluated the patient today. Discussed with the resident and agree with the residents finding and plan as documented in the resident's note. Changes highlighted in blue font. Patient Condition at Discharge: Stable Plan - Discharge Summary New Discharge Prescriptions: New Omeprazole [PriLOSEC] 40 mg PO DAILY #14 cap Continue lisinopriL 40 mg PO DAILY Diltiazem Cd [Cardizem CD] 120 mg PO DAILY #90 cap Apixaban [Eliquis] 5 mg PO BID #90 tab Bisoprolol Fumarate 5 mg PO DAILY Levothyroxine Sodium [Synthroid] 100 mcg PO DAILY amLODIPine [Norvasc] 2.5 mg PO DAILY Flecainide Acetate [Tambocor] 100 mg PO BID Discharge Medication List lisinopriL 40 mg PO DAILY 06/20/24 [History] Apixaban [Eliquis] 5 mg PO BID #90 tab 06/21/24 [Rx] Diltiazem Cd [Cardizem CD] 120 mg PO DAILY #90 cap 06/21/24 [Rx] Bisoprolol Fumarate 5 mg PO DAILY 12/14/24 [History] Flecainide Acetate [Tambocor] 100 mg PO BID 12/14/24 [History] Levothyroxine Sodium [Synthroid] 100 mcg PO DAILY 12/14/24 [History] amLODIPine [Norvasc] 2.5 mg PO DAILY 12/14/24 [History] Omeprazole [PriLOSEC] 40 mg PO DAILY #14 cap 12/17/24 [Rx] [facility]ment[facility]Ref[place] [facility] [place] [place] - 01/02/25 3:00 pm Jose Laura DO [Primary Care Provider] - 1-2 days Patient Instructions/Handouts: Peptic Ulcer (DC), Nutrition after Bariatric Surgery (GEN), Esophageal Dilation (GEN) Activity/Diet/Wound Care/Special Instructions: Recommend low sugar diet for gastric bypass. Start omeprazole immediately to address ulcers. FOLLOW UP SOONER FOR WORSENING SYMPTOMS, PROBLEMS, OR CONCERNS. Discharge Disposition: HOME SELF-CARE
== END 2024-12-17 11:57 | disposition home or self-care (01) | DRG 389 ==
LOC: EC 13:42 → 5NMEDONC 18:54 → 6NMEDSUR 12-15 04:27 → OBSVTOIN 12-16 13:26
PROVIDERS: ADMIT Student in an Organized Health Care Education/Training Program; ATTEND Student in an Organized Health Care Education/Training Program
PROC: 0D7A8ZZ Dilation of Jejunum, Via Natural or Artificial Opening Endoscopic (ICD-10-PCS; 2024-12-17)
PROC: 0D768ZZ Dilation of Stomach, Via Natural or Artificial Opening Endoscopic (ICD-10-PCS; principal; 2024-12-17 07:30)
DX: K56.41 Fecal impaction (principal); E87.1 Hypo-osmolality and hyponatremia; E87.20 Acidosis, unspecified; E03.9 Hypothyroidism, unspecified; I10 Essential (primary) hypertension; K28.9 Gastrojejunal ulcer, unspecified as acute or chronic, without hemorrhage or perforation; I48.20 Chronic atrial fibrillation, unspecified; K52.9 Noninfective gastroenteritis and colitis, unspecified; R13.10 Dysphagia, unspecified; K31.2 Hourglass stricture and stenosis of stomach; K22.89 Other specified disease of esophagus; K44.9 Diaphragmatic hernia without obstruction or gangrene; Z79.01 Long term (current) use of anticoagulants; Z79.890 Hormone replacement therapy; Z79.899 Other long term (current) drug therapy; Z85.3 Personal history of malignant neoplasm of breast; Z98.84 Bariatric surgery status; Z88.0 Allergy status to penicillin; Z88.8 Allergy status to other drugs, medicaments and biological substances
CPT/HCPCS: 36415; 43249; 74018; 74177; 80048; 80053; 81003; 83605; 83690; 83735; 84443; 85025; 87040; 96361; 96365; 96368; 99285

== ENCOUNTER → 2025-01-02 | Outpatient (CLI) | payer MEDICARE ==
[2025-01-02 15:14] VITALS: BP 126/79; PULSE 59; RESP 16; TEMP 97.6; BMI 29.9
--- NOTE | 2025-01-02 15:41 | P.HPBAR ---
Bariatric H&P - History & Physicial H&P Date: 01/02/25 History & Physicial: Visit/CC: F/U Patient initial contact: Initial weight: 151.046 kg Initial weight in pounds: 333.00 Height: 5 ft 6 in Initial BMI: 53.7 Last weight: Current weight: 84.141 kg Current weight in pounds: 185.50 Current BMI: 29.9 Burt body weight (based on NIH guidelines): 59.3 kg Excess body weight loss: 72.9% The patient is a 84 year-old F who presents for Bariatric Assessment. She is driving the country to [facility]. She is traveling around the world. Swallowing has improved since dilation. 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 Due for labs in 2018. Lower endoscopy as needed. Recommend fix nutrition 1st prior to scope. Increase 70 grams no further dysphagia. Less farting. Past Medical History Past Medical History: Atrial Fibrillation, Cancer, Hypertension, Osteoarthritis (OA), Pneumonia, Thyroid Disorder Additional Past Medical History / Comment(s): breast ca with left mastectomy History of Any Multi-Drug Resistant Organisms: None Reported Past Surgical History: Bariatric Surgery, Cholecystectomy, Hysterectomy Additional Past Surgical History / Comment(s): RYGB 08/2012. gastric bypass. mastectomy Past Anesthesia/Blood Transfusion Reactions: No Reported Reaction Smoking Status: Never smoker - Past Family History Mother Family Medical History: Cancer Additional Family Medical History / Comment(s): pancreatic cancer Father Family Medical History: Diabetes Mellitus, Hypertension Surgical - Exam Vital Signs Temp Pulse Resp BP 97.6 F 59 L 16 126/79 01/02/25 15:12 01/02/25 15:12 01/02/25 15:12 01/02/25 15:12 Bariatric Checklist Checklist: Plan: Checklist: EGD: 1. Hiatal hernia: 2. H. Pylori: HgbA1c: Vitamin D: Smoking: Never smoker Primary care physician referral: Psychiatry clearance: Cardiology clearance: Sleep study: Diet journal: VTE risk score: VTE risk level: Rehab needs at discharge:
== END ==
LOC: BARWHC3 14:41
PROVIDERS: ATTEND Surgery Plastic and Reconstructive Surgery
DX: E66.01 Morbid (severe) obesity due to excess calories (principal); Z68.29 Body mass index [BMI] 29.0-29.9, adult; Z88.8 Allergy status to other drugs, medicaments and biological substances; Z88.0 Allergy status to penicillin
CPT/HCPCS: 99211